=== PATIENT | male | born 1930 | race Caucasian/White ===

== ENCOUNTER 2017-10-26 15:42 | Inpatient (IN) ==
[2017-10-26] MEDS ORDERED: Ibuprofen 600 MG TABLET PO ONE (15:52)
--- NOTE | 2017-10-26 16:45 | Emergency Department Note ---
Disposition Clinical Impression: Fractured femoral neck Qualifiers: Encounter type: initial encounter Fracture type: closed Laterality: left Qualified Code(s): S72.002A - Fracture of unspecified part of neck of left femur , initial encounter for closed fracture Disposition: Admitted As Inpatient Condition: Fair Time of Disposition: 18:44 General Adult HPI - General Chief complaint: ED Extremity Injury, Lower Stated complaint: Fall-Left Hip Injury Time Seen by Provider: 10/26/17 15:47 Source: EMS Mode of arrival: EMS Limitations: no limitations Nursing Notes Reviewed: Yes Vital Signs Reviewed: Yes - History of Present Illness HPI Narrative: 87-year-old male presents to emergency department after a fall. Patient states he was walking to Dr. Dukes office when he tripped on a curb and fell onto his left side he states he did not his head did not lose consciousness is only complaining of left hip pain is going down into his leg he is complaining of the mild knee pain listed as all due to an abrasion from his fall. Says he remembers the entire event. He states is tripped over the curb there is no other reason for the fall is all mechanical. Patient is not complaining of any nausea, vomiting, headache, blurry vision, fever, chills, neck pain, back pain, chest pain, shortness of breath, abdominal pain, changes in bowel movements, pain with urination, pain or tenderness of the arms or legs and generalized weakness. He is also not complaining of any cauda equina symptoms as he still has control of his bowels and bladder. Pain Scale: 2 - Related Data Home Medications Medication Instructions Recorded Confirmed Aspirin [Aspirin] 81 mg PO DAILY 05/09/15 04/23/16 Naphazoline HCl/Pheniramine [Eye 1 drop OP QID 05/09/15 04/23/16 Allergy Relief Drops] Brimonidine Tartrate [Alphagan P] 1 drop OP TID 04/23/16 04/23/16 Ciprofloxacin OPTH Soln [Ciloxan 1 drop BOTH EYES TID 04/23/16 04/23/16 OPTH Soln] Mv-Mn/FA/Vit K1/Lycop/Lut/Zeax 1 tab PO DAILY 04/23/16 04/23/16 [Ocuvite Eye + Multi Tablet] Timolol Maleate 0.25% [Timolol 1 drop OP TID 04/23/16 04/23/16 Maleate 0.25%] Previous Rx's Medication Instructions Recorded Hydrocodone/Acetaminophen [[place] 1 each PO Q4-6H PRN #30 tablet 04/23/16 5-325 Tablet] Mupirocin [Bactroban Oint] 1 appl TP BID #1 tube 04/23/16 cephALEXin [Keflex] 500 mg PO TID 5 Days capsule 04/23/16 Mupirocin [Bactroban Oint] 1 appl TP BID #1 tube 08/19/16 Sulfamethoxazole/Trimeth DS 1 each PO BID #14 tablet 08/19/16 [Bactrim DS] Allergies Allergy/AdvReac Type Severity Reaction Status Date / Time No Known Allergies Allergy Verified 05/09/15 08:09 Review of Systems: 10 point review of systems done and negative unless otherwise stated in history of present illness. All systems ED: reviewed and negative except as stated. Review of Systems: As Per HPI Past Medical History - Past Medical History Attestation: Yes The following information was validated with the patient. Source: patient Medical history: Reports: glaucoma Psychiatric history: Reports: no psych history - Social History Smoking Status: Never smoker Smokeless Tobacco Status: No Alcohol use: Reports: none Drug use: Reports: none Physical Exam - General Limitations: no limitations General appearance: alert, in no apparent distress - Head Head exam: atraumatic, normocephalic, normal inspection - Eye Eye exam: Present: normal appearance, PERRL, EOMI - ENT ENT exam: normal exam, normal oropharynx, mucous membranes moist - Neck Neck exam: Present: normal inspection, full ROM, trachea midline - Chest Chest inspection: Present: normal inspection, symmetric chest wall rise - Respiratory Respiratory exam: Present: normal lung sounds bilaterally. Absent: respiratory distress, wheezes, accessory muscle use - Cardiovascular Cardiovascular exam: Present: regular rate, normal rhythm, normal heart sounds - Abdominal Exam Abdominal exam: Present: soft, Non-Tender. Absent: tenderness, distention, guarding, rebound, rigidity - Expanded Lower Extremity Exam Hip/Pelvis exam: Present: normal inspection, full ROM. Absent: tenderness Upper leg exam: Present: normal inspection, full ROM Knee exam: Present: normal inspection, full ROM, abrasion (Small abrasion on anterior surface of the knee.). Absent: tenderness Lower leg exam: Present: normal inspection, full ROM Neurovascular/Tendon exam: Present: normal capillary refill. Absent: pulse deficit, motor deficit, sensory deficit, tendon deficit - Back Exam Back exam: Present: normal inspection, full ROM. Absent: tenderness - Neurological Exam Neurological exam: Present: alert, oriented X3 - Skin Skin exam: Present: warm, dry, intact, normal color Course Course Narrative: 87-year-old male presents to the emergency department complaining of left-sided hip pain. We will give him Motrin for pain control will also get a left-sided hip x-ray to see if there is any signs of fracture. We will reassess patient based on x-ray findings. - Reevaluation(s) Reevaluation #1: X-ray came back showing left femoral neck fracture. We will get CBC, BMP place an IV give him fluids as well as coags. We will give patient IV fluids as well as Dilaudid for pain control and will contact orthopedic surgery. Time: 17:00 Vital Signs Temperature 97.5 F L 10/26/17 15:44 Pulse Rate 80 10/26/17 15:44 Respiratory Rate 18 10/26/17 15:44 Blood Pressure 165/94 10/26/17 15:44 O2 Sat by Pulse Oximetry 97 10/26/17 15:44 Temperature 97.5 F L 10/26/17 15:44 Pulse Rate 86 10/26/17 18:31 Respiratory Rate 14 10/26/17 18:31 Blood Pressure 160/74 10/26/17 18:31 O2 Sat by Pulse Oximetry 95 10/26/17 18:31 Oxygen Delivery Oxygen Delivery Nasal Cannula Medical Decision Making - [facility] Narrative Medical decision making narrative: 87-year-old male presented to the emergency department for a fall he fell onto his left hip is mechanical fall where he tripped over a curb. He was complaining of left hip pain. On exam he had mild external rotation with mild shortening of the left leg but he had no pelvic tenderness when I compress his pelvis or palpated the left leg. He did have good pedal pulses bilaterally. Did get x-ray which showed possible femoral neck fracture that is nondisplaced. This time we decided to give patient Dilaudid as well as IV fluids and got basic labs. These are me pending his surgery tomorrow all these came back normal. I spoke with the on-call orthopedist, Dr. Harden who agreed to see the patient but recommended we admit to the hospitalist service and consult them. This was done I then spoke with Dr. Albright the hospitalist agreed to admit the patient to their service. Patient is admitted in stable condition. They did ask me to order a CT of the hip which is done and is still pending. Patient is admitted in stable condition. Hip X-Ray 10/26/17 15:52 IMPRESSION: Findings suspicious for a nondisplaced fracture of the left femoral neck. Further evaluation with CT/ MRI should be considered as clinically indicated. D/ / Deep Hernandez MD / Deep Hernandez MD Interpreting Provider: Deep Hernandez MD - Medical Records Medical records reviewed: Yes I reviewed the patient's medical records. - Lab Data Lab results reviewed: Yes I reviewed the patient's lab results. Result diagrams: 10/26/17 17:39 10/26/17 17:39 Lab Results 10/26/17 10/26/17 10/26/17 Range/Units 17:39 17:39 17:39 WBC 8.3 (4.3-11.1) K/mcL RBC 4.42 (4.19-5.50) M/mcL Hgb 13.4 (12.9-16.9) g/dL Hct 41.5 (37.5-50.1) % MCV 93.9 (83.0-100.0) fL MCH 30.3 (28.0-33.3) pg MCHC 32.3 (31.6-35.5) g/dL RDW 13.2 (11.5-14.5) % Plt Count 225 (140-400) K/mcL MPV 9.7 (9.4-12.4) fL Immature Gran % 0.5 (0-4) % Seg Neutrophils % 74.0 % Lymphocytes % 15.2 % Monocytes % 6.7 % Eosinophils % 3.0 % Basophils % 0.6 % Neutrophils # 6.1 (1.6-8.9) K/mcL Lymphocytes # 1.3 (0.6-4.6) K/mcL Monocytes # 0.6 (0.0-1.3) K/mcL Eosinophils # 0.3 (0.0-0.6) K/mcL Basophils # 0.1 (0.0-0.2) K/mcL PT 10.9 (9.4-12.1) Seconds INR 1.0 APTT 28.2 (26.0-36.0) Seconds Sodium 137 (136-145) mEq/L Potassium 4.4 (3.5-5.1) mEq/L Chloride 105 (98-107) mEq/L Carbon Dioxide 24 (23-29) mEq/L BUN 20 (8-23) mg/dL Creatinine 0.89 (0.70-1.30) mg/dL Est GFR ( Amer) > 60 (> 60) Est GFR (Non-Af Amer) > 60 (> 60) BUN/Creatinine Ratio 22 (6-26) Glucose 106 H (70-105) mg/dL Calculated Osmolality 287 (280-300) Calcium 9.3 (8.6-10.3) mg/dL - Radiology Data Radiology results reviewed: Yes I reviewed the patient's radiology results. Attestation Statement - Attestation Attestation: I, Silverio Nguyen DO, examined this patient [id number] and my medical decision-making was reviewed with Dr. Balta Morrison, Resident Physician. I agree with the documented findings, disposition and treatment plan as described except to the extent set forth below. Please see my progress notes for details. 87-year-old male presents to emergency room in a mechanical fall. He is ambulating to a doctor's appointment today with his when he tripped over a curb falling sideways hitting his left hip on the ground. Patient significant pain after that event. He did not hit his head and did not lose consciousness. He has no other complaint of injuries. Entire shoulder girdle and bilateral upper extremities and hands. Ekaterina and there is no visible signs of trauma rash or injury. Patient is not up-to-date on his tetanus. He does have a small superficial abrasion to left knee. He has no gross abnormality deformity to the left knee at this time. He has a stable pelvis on palpation this point no abdominal pain. He has mild tenderness over the greater trochanter but no gross abnormality deformity. His left leg is externally rotated and slightly shortened. Patient is actually confirms a left femoral neck fracture. No other gross abnormalities noted. Screening laboratory workup and EKG added on for preoperative evaluation. Consultation orthopedics will be completed. Patient does not warrant CT of the head or neck considering he did not fall or hit his head. Vital signs are stable. Consultations this admission will be established this time secondary to inability to ambulate. See detailed documentation of the physical exam, medical intervention, medical decision- making and disposition in the resident physician's note [id number] 87-year-old male done at femoral neck fracture by CT scan. Admission passes completed. Pain is controlled at this time. No other complaints or issues.
[2017-10-26] MEDS ORDERED: Ondansetron 4 MG/2 ML VIAL IVP ONE (16:55)
[2017-10-26] MEDS ORDERED: *HR* HYDROmorphone (PF) 1 MG/ML SYRINGE IVP ONE (16:55)
[2017-10-26] MEDS ORDERED: 0.9 % Sodium Chloride 1,000 ML IVC ONE (16:55)
[2017-10-26] MEDS ORDERED: Tdap (Boostrix) Vaccine 0.5 ML SYRINGE IM ONE (17:26)
[2017-10-26 17:44] LABS: Basophils # 0.1 K/mcL (0.0-0.2); Basophils % 0.6 %; Eosinophils # 0.3 K/mcL (0.0-0.6); Hematocrit 41.5 % (37.5-50.1); Hemoglobin 13.4 g/dL (12.9-16.9); Immature Granulocytes % 0.5 % (0-4); Lymphocytes # 1.3 K/mcL (0.6-4.6); Lymphocytes % 15.2 %; Mean Corpuscular HGB Conc 32.3 g/dL (31.6-35.5); Mean Corpuscular Hemoglobin 30.3 pg (28.0-33.3); Mean Corpuscular Volume 93.9 fL (83.0-100.0); Mean Platelet Volume 9.7 fL (9.4-12.4); Monocytes # 0.6 K/mcL (0.0-1.3); Monocytes % 6.7 %; Neutrophils # 6.1 K/mcL (1.6-8.9); Platelet Count 225 K/mcL (140-400); Red Blood Count 4.42 M/mcL (4.19-5.50); Red Cell Distribution Width 13.2 % (11.5-14.5)
[2017-10-26 17:55] LABS: Prothrombin Time 10.9 Seconds (9.4-12.1)
[2017-10-26 17:58] LABS: Activated Partial Thrombo Time 28.2 Seconds (26.0-36.0)
[2017-10-26 17:59] LABS: BUN/Creatinine Ratio 22 (6-26); Blood Urea Nitrogen 20 mg/dL (8-23); Calcium 9.3 mg/dL (8.6-10.3); Carbon Dioxide 24 mEq/L (23-29); Chloride 105 mEq/L (98-107); Glucose 106 mg/dL (70-105); Osmolality,Calculated 287 (280-300); Potassium 4.4 mEq/L (3.5-5.1); Sodium 137 mEq/L (136-145); eGFR For African Americans > 60 (> 60); eGFR For Non-African Americans > 60 (> 60)
[2017-10-26] MEDS: Acetaminophen 325 MG TABLET PO PRN (23:31)
[2017-10-27] MEDS ORDERED: Ondansetron 4 MG/2 ML VIAL IVP PRN ×2 (01:20→23:13)
[2017-10-27] MEDS ORDERED: Naloxone 0.4 MG/ML INJ IVP PRN ×2 (01:20→23:13)
[2017-10-27] MEDS ORDERED: 0.9 % Sodium Chloride 1,000 ML IVC SCH ×2 (01:30→23:13)
--- NOTE | 2017-10-27 01:55 | Internal Med History&Physical ---
Date of Encounter: 10/27/17 Time of Encounter: 00:20 Assessment and Plan (1) Fractured femoral neck Current visit: Yes Status: Acute 1. Patient with adequate pain control presently. 2. Consult orthopedics for likely surgical repair. 3. Hydrate with IVF and provide IV pain meds and anti-emetics as needed. 4. Will check baseline EKG and CXR. Qualifiers: Encounter type: initial encounter Fracture type: closed Laterality: left Qualified Code(s): S72.002A - Fracture of unspecified part of neck of left femur, initial encounter for closed fracture (2) DVT prophylaxis Current visit: Yes Status: Acute 1. Heparin SQ. Internal Medicine - H&P: HPI Chief complaint: hip fracture Admitted From: Emergency Dept Plans for Post Hospital Care: Transfer Inp Rehab Fac History of present illness: Mr. Bender is an 87 year old male who presents to the ER after he slipped and fell outside walking to a doctor's office. He landed on his left side sustaining significant pain. He was brought to ER and was found to have a left hip fracture. He was admitted to hospitalist service with a consultation to orthopedics. Upon my assessment of the patient, patient is lying in bed comfortably with minimal pain now. He states he tripped on the sidewalk and landed on concrete, injuring himself and breaking his hip. He denies any syncope. He denies any lightheadedness, dizziness, palpitations, or racing heartbeats. Patient and his state he has no chronic medical problems and he exercises regularly. He has no history of angina or any anginal type symptoms. Past Med Surg Social Fam HX - Past Medical History Attestation: Yes The following information was validated with the patient. Source: patient, old records reviewed, obtained from family Medical history: no medical history, glaucoma Psychiatric history: no psych history - Past Surgical History Surgical History: other (tonsillectomy; thoracic surgery for esophageal perforation) - Social History Smoking Status: Former smoker Smokeless Tobacco Status: No Alcohol use: none Drug use: none Current living situation: Home Recent Out of Country Travel Within the Last 8 Weeks: No - Family History Mother Living Status: Age at : 40 Cause of : spinal cancer Hx Family Cancer: Yes (spinal cancer) Internal Medicine - H&P: Meds Mv-Mn/FA/Vit K1/Lycop/Lut/Zeax [Ocuvite Eye + Multi Tablet] 1 tab PO BID [History] Aspirin Enteric Coated [Aspirin EC] 81 mg PO DAILY 10/26/17 [History] Ciprofloxacin OPTH Soln [Ciloxan OPTH Soln] 1 drop OP QID 10/26/17 [History] Latanoprost [Xalatan] 1 drop OP HS 10/26/17 [History] Timolol Maleate 0.5% 1 drop OP BID 10/26/17 [History] 3 Allergy/AdvReac Type Severity Reaction Status Date / Time morphine AdvReac Hallucinati Verified 10/26/17 20:24 ng - Constitutional Constitutional: no chills, no fever(s) - EENT Eyes: loss of vision (chronic) Ears: no ear pain, no tinnitus Nose, mouth and throat: no nasal congestion, no sinus pressure, no sore throat - Cardiovascular Cardiovascular ROS IM: no chest pain, no dyspnea, no dyspnea on exertion, no irregular heart rhythm, no lightheadedness, no palpitations, no syncope - Respiratory Respiratory: no cough, no dyspnea, no dyspnea on exertion, no chest congestion, no excessive phlegm production - Gastrointestinal Gastrointestinal: no abdominal pain, no diarrhea, no hematemesis, no hematochezia, no melena, no nausea, no vomiting - Genitourinary Genitourinary ROS male: no dysuria, no flank pain, no hematuria - Musculoskeletal Musculoskeletal ROS IM: no back pain, no muscle weakness, no myalgias - Integumentary Integumentary IM: no rash, no jaundice - Neurological Neurological ROS: no dizziness, no focal weakness, no frequent falls, no headache(s), no weakness - Psychiatric Psychiatric: no anxiety, no depression - Endocrine Endocrine IM: no polydipsia, no polyuria - Hematologic/Lymphatic Hematologic/Lymphatic: no easy bruising, no lymphadenopathy - Allergic/Immunologic Allergic/Immunologic: no wheezing, no GI upset with certain foods - Constitutional Vitals: Temp Pulse Resp BP Pulse Ox 98.0 F 82 17 131/80 100 10/26/17 23:48 10/26/17 23:48 10/26/17 23:48 10/26/17 23:48 10/26/17 23:48 General appearance: Present: cooperative, A&O X 3, pleasant, no acute distress, answers questions appropriately - Head Head exam: Present: atraumatic, normal inspection - Eye Eye exam: Present: EOMI, PERRL. Absent: scleral icterus Pupils: Present: normal accommodation - ENT ENT exam: Present: mucous membranes dry, normal exam - Neck Neck exam general surgery: Present: full ROM, supple. Absent: tenderness, nuchal rigidity - Expanded Neck Exam Neck exam: Absent: carotid bruit - Respiratory Respiratory exam: Present: CTAB. Absent: chest wall tenderness, rales, rhonchi , wheezes - Cardiovascular Cardiovascular exam: Present: RRR, +S1, +S2. Absent: diastolic murmur, systolic murmur - GI/Abdominal GI/Abdominal exam: Present: normal bowel sounds, soft. Absent: guarding, hepatomegaly, mass, rebound, splenomegaly, tenderness - Extremities Exam Extremities exam: Present: tenderness (left hip), warm, radial pulses palpable and symmetrical. Absent: calf tenderness, pedal edema - Back Exam Back exam: Absent: CVA tenderness (L), CVA tenderness (R) - Neurological Exam Neurological exam: Present: alert, CN II-XII intact, oriented X3, no focal deficits - Psychiatric Psychiatric exam: Present: normal affect, normal mood - Skin Skin exam: Present: dry, warm. Absent: rash Internal Med - H&P Results - Labs CBC & Chem 7: 10/26/17 17:39 10/26/17 17:39
[2017-10-27] MEDS: Acetaminophen 325 MG TABLET PO PRN (04:17)
[2017-10-27] MEDS: *HR* Heparin 5,000 UNIT/ML VIAL SQ SCH ×2 (04:17→15:30)
[2017-10-27 07:49] LABS: Alanine Aminotransferase 15 Units/L (7-52); Albumin 3.8 g/dL (3.5-5.7); Albumin/Globulin Ratio 1.5 (1.1-2.2); Alkaline Phosphatase 24 Units/L (34-104); Aspartate Amino Transferase 17 Units/L (13-39); BUN/Creatinine Ratio 26 (6-26); Bilirubin,Total 0.6 mg/dL (0.3-1.0); Blood Urea Nitrogen 19 mg/dL (8-23); Calcium 8.6 mg/dL (8.6-10.3); Carbon Dioxide 23 mEq/L (23-29); Chloride 107 mEq/L (98-107); Globulin 2.6 g/dL (2.4-3.5); Glucose 128 mg/dL (70-105); Osmolality,Calculated 288 (280-300); Potassium 4.1 mEq/L (3.5-5.1); Sodium 137 mEq/L (136-145); Total Protein 6.4 g/dL (6.4-8.9); eGFR For African Americans > 60 (> 60); eGFR For Non-African Americans > 60 (> 60)
[2017-10-27 08:06] LABS: Basophils % 0.3 %; Eosinophils # 0.1 K/mcL (0.0-0.6); Eosinophils % 0.7 %; Hematocrit 39.5 % (37.5-50.1); Hemoglobin 12.6 g/dL (12.9-16.9); Immature Granulocytes % 0.5 % (0-4); Lymphocytes # 0.9 K/mcL (0.6-4.6); Lymphocytes % 10.6 %; Mean Corpuscular HGB Conc 31.9 g/dL (31.6-35.5); Mean Corpuscular Hemoglobin 29.7 pg (28.0-33.3); Mean Corpuscular Volume 93.2 fL (83.0-100.0); Monocytes # 0.9 K/mcL (0.0-1.3); Monocytes % 10.4 %; Neutrophils # 6.8 K/mcL (1.6-8.9); Platelet Count 211 K/mcL (140-400); Red Blood Count 4.24 M/mcL (4.19-5.50); Red Cell Distribution Width 13.2 % (11.5-14.5); Segmented Neutrophils % 77.5 %
[2017-10-27] MEDS: *HR* HYDROcodone/Acet 5/325 mg TABLET PO PRN ×2 (08:47→15:21)
[2017-10-27] MEDS: Ciprofloxacin OPTH Soln 2.5 ML BOTTLE BOTH EYES SCH ×4 (08:47→22:31)
[2017-10-27] MEDS ORDERED: Multivit/Ca/Min/Fe/FA 1 TAB TABLET PO SCH (09:00)
[2017-10-27] MEDS ORDERED: Aspirin Enteric Coated 81 MG Tablet PO SCH (09:00)
--- NOTE | 2017-10-27 10:46 | Orthopedic Consult Note ---
Date of Encounter: 10/27/17 Time of Encounter: 07:30 Assessment and Plan (1) Fractured femoral neck Current Visit: Yes Status: Acute Left hip femoral neck fracture will require surgical fixation. Plan for left hip hemiarthroplasty today by Dr. Cheney. Discussed the procedure as well as r/b/ a with patient and who expressed understanding. Consent obtained and placed in chart. All questions answered. NPO today NWB until surgery. Qualifiers: Encounter type: initial encounter Fracture type: closed Laterality: left Qualified Code(s): S72.002A - Fracture of unspecified part of neck of left femur, initial encounter for closed fracture History of Present Illness Chief complaint: left hip pain HPI: Mr. Bender is a 87 year old male who presented to ER last night after a fall. He states he has poor vision due to glaucoma and macular degeneration and he tripped on a raised area on the sidewalk landing on his left side and had instant constant pain since that fall that is worse with motion or weight bearing. Pain at current moment is very well controlled and described as dull ache at rest. States he normally walks with a cane for long distances but uses no assistance at home. He admits to having a scrape to his left knee but denies any other lesions. Denies numbness or tingling to extremities. Denies chest pain , SOB, fevers. Denies hitting his head or LOC. Past Med Surg Social Fam HX - Past Medical History Medical history: no medical history, glaucoma, other (macular degeneration) Psychiatric history: no psych history - Past Surgical History Surgical History: other (tonsillectomy; thoracic surgery for esophageal perforation) - Social History Smoking Status: Former smoker Smokeless Tobacco Status: No Alcohol use: none Drug use: none - Family History Mother Living Status: Age at : 40 Cause of : spinal cancer Hx Family Cancer: Yes (spinal cancer) Medications and Allergies Mv-Mn/FA/Vit K1/Lycop/Lut/Zeax [Ocuvite Eye + Multi Tablet] 1 tab PO BID [History] Aspirin Enteric Coated [Aspirin EC] 81 mg PO DAILY 10/26/17 [History] Ciprofloxacin OPTH Soln [Ciloxan OPTH Soln] 1 drop OP QID 10/26/17 [History] Latanoprost [Xalatan] 1 drop OP HS 10/26/17 [History] Timolol Maleate 0.5% 1 drop OP BID 10/26/17 [History] 3 Allergy/AdvReac Type Severity Reaction Status Date / Time morphine AdvReac Hallucinati Verified 10/26/17 20:24 ng All Systems Reviewed: A 10-system review of systems was performed and is negative for pertinent findings except as documented above in the HPI. - Constitutional Constitutional: as per HPI - Cardiovascular Cardiovascular: as per HPI - Respiratory Respiratory: as per HPI - Musculoskeletal Musculoskeletal: as per HPI Physical Exam - Constitutional Vitals: Temp Pulse Resp BP Pulse Ox 98.3 F 88 16 145/80 95 10/27/17 06:37 10/27/17 06:37 10/27/17 06:37 10/27/17 06:37 10/27/17 06:37 - Hip left Tenderness with palpation: anterior, lateral (No open wounds or lesions noted to left hip, superficial skin abrasion noted to lateral left knee roughly 3cm diameter. Moderate tenderness to palpation of left hip, no calf tenderness to palpation. ROM hip restricted secondary to known fracture. good dorsiflexion of foot, grossly NV intact) Results - Labs Result Diagrams: 10/27/17 07:16 10/27/17 07:16 Labs: Abnormal lab results Hgb 12.6 g/dL (12.9-16.9) L 10/27/17 07:16 Glucose 128 mg/dL (70-105) H 10/27/17 07:16 Alkaline Phosphatase 24 Units/L (34-104) L 10/27/17 07:16 H & H 10/27/17 Range/Units 07:16 Hgb 12.6 L (12.9-16.9) g/dL Hct 39.5 (37.5-50.1) % All other labs normal. - Diagnostic results Hip x-ray: report reviewed, image reviewed Hip CT: report reviewed (Acute mildly displaced left femoral neck fracture.), image reviewed Consult Discharge Plan - Plan Referrals: Jake Frederick DO [Primary Care Provider] - - Attending Attestation Case and plan of care discussed with supervising physician who was available for all aspects of care.
--- NOTE | 2017-10-27 16:21 | Anesthesia Evaluation PreOp ---
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, no residual deficits), Other (LEFT EYE BLINDNESS , RIGHT EYE LEGALLY BLIND) Other Medical History: GERD, Other (glaucoma) Anesthesia History: No Prior Anesthetic Complications, Past Anesthesia Alcohol Use: none Drug use: none Medications and Allergies Mv-Mn/FA/Vit K1/Lycop/Lut/Zeax [Ocuvite Eye + Multi Tablet] 1 tab PO BID [History] Aspirin Enteric Coated [Aspirin EC] 81 mg PO DAILY 10/26/17 [History] Ciprofloxacin OPTH Soln [Ciloxan OPTH Soln] 1 drop OP QID 10/26/17 [History] Latanoprost [Xalatan] 1 drop OP HS 10/26/17 [History] Timolol Maleate 0.5% 1 drop OP BID 10/26/17 [History] 3 Allergy/AdvReac Type Severity Reaction Status Date / Time morphine AdvReac Hallucinati Verified 10/26/17 20:24 ng - Meds/Allergy Pre-op Review Medications Reviewed: Yes Allergies Reviewed: Yes Beta Blockers on Current Med List: No Anesthesia Results - Labs 10/27/17 07:16 10/27/17 07:16 Laboratory Tests 10/26/17 17:39 PT 10.9 INR 1.0 APTT 28.2 - Imaging EKG: report reviewed (10/27/2017 SINUS RHYTHM MARKED LAD IV CONDUCTION DELAY SINUS RHYTHM WITH OCCASIONAL SUPRAVENTRICULAR PREMATURE COMPLEXES LEFT ANTERIOR FASCICULAR BLOCK) Anesthesia Exam Vital Signs/O2 Sat, Most Current Temp Pulse Resp BP Pulse Ox 99.5 F 92 16 152/83 92 10/27/17 16:13 10/27/17 16:13 10/27/17 16:13 10/27/17 16:13 10/27/17 16:13 Height: 6'/1.83 m Weight: 160 lbs/73 kg NPO (# of Hours): 8 Pain Scale: 0 Pain Scale Used: Numeric (1 - 10) - HEENT Pupil (Motor): EOMI Mallampati: II Teeth: Normal, Missing Denture Type: Upper: Complete Oral Opening: Greater than 3 - 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
--- NOTE | 2017-10-27 17:18 | Internal Med Progress Note ---
Date of Encounter: 10/27/17 Time of Encounter: 17:18 - Subjective Interval history: Interval changes: A&O x3 In NAD Pain controlled. No cp or SOB Physical Exam: See below Assesment and plan: Left hip femoral neck fracture, displaced S/p Left hip hemiarthroplasty Pain control with Tylenol and [place] PT/OT Await recommendations from PT/OT - Constitutional Vitals: Temp Pulse Resp BP Pulse Ox 99.5 F 92 16 152/83 92 10/27/17 16:13 10/27/17 16:13 10/27/17 16:13 10/27/17 16:13 10/27/17 16:13 General appearance: Present: cooperative, A&O X 3, pleasant, no acute distress, answers questions appropriately - Head Head exam: Present: atraumatic, normocephalic - Eye Eye exam: Present: PERRL, conjuntiva pink, sclera anicteric Pupils: Present: PERRL - Neck Neck exam general surgery: Present: supple, trachea midline. Absent: lymphadenopathy - Respiratory Respiratory exam: Present: CTAB. Absent: accessory muscle use, rales, rhonchi, wheezes - Cardiovascular Cardiovascular exam: Present: RRR, +S1, +S2. Absent: diastolic murmur, gallop, rubs, systolic murmur - GI/Abdominal GI/Abdominal exam: Present: normal bowel sounds, soft, no peritoneal signs. Absent: distended, tenderness - Neurological Exam Neurological exam: Present: oriented X3, no focal deficits, pronater drift, facial droop, speech deficit - Skin Skin exam: Present: dry, intact Internal Medicine: Result - Labs CBC & Chem 7: 10/27/17 07:16 10/27/17 07:16 Labs: Short CBC 10/27/17 Range/Units 07:16 WBC 8.8 (4.3-11.1) K/mcL Hgb 12.6 L (12.9-16.9) g/dL Hct 39.5 (37.5-50.1) % Plt Count 211 (140-400) K/mcL Neutrophils # 6.8 (1.6-8.9) K/mcL BMP 10/27/17 07:16 Sodium 137 Potassium 4.1 Chloride 107 Carbon Dioxide 23 BUN 19 Creatinine 0.74 Glucose 128 H Calcium 8.6 Liver Function 10/27/17 Range/Units 07:16 Total Bilirubin 0.6 (0.3-1.0) mg/dL AST 17 (13-39) Units/L ALT 15 (7-52) Units/L Alkaline Phosphatase 24 L (34-104) Units/L Albumin 3.8 (3.5-5.7) g/dL - ABG Interpretation ABG results: PT/INR, D-dimer PT 10.9 Seconds (9.4-12.1) 10/26/17 17:39 Consult Discharge Plan - Plan Referrals: Jake Frederick DO [Primary Care Provider] -
[2017-10-27] MEDS ORDERED: *HR* FentaNYL (PF) 100 MCG/2 ML VIAL ONE ×2 (18:24→19:10)
[2017-10-27] MEDS ORDERED: *HR* Propofol 200 MG/20 ML VIAL IVP ONE (18:24)
[2017-10-27] MEDS ORDERED: Lidocaine -MPF 2% 2 ML VIAL ONE (18:25)
[2017-10-27] MEDS ORDERED: *HR* Rocuronium Bromide 50 MG/5 ML VIAL ONE (18:33)
[2017-10-27] MEDS ORDERED: Lidocaine -MPF 4% 5 ML AMPUL ONE (18:43)
[2017-10-27] MEDS ORDERED: *HR* PHENYLEPHRINE 1,000 MCG/10 ML SYRINGE IVP ONE (19:05)
[2017-10-27] MEDS ORDERED: Ethanol\\Acetic Acid\\Na Ace\\Ben 1,000 ML IRRIG.SOLN IR ONE (19:13)
[2017-10-27] MEDS ORDERED: *HR* HYDROmorphone 2 MG/ML SYRINGE ONE (20:09)
[2017-10-27] MEDS ORDERED: Dexamethasone 4 MG/ML VIAL ONE (20:41)
[2017-10-27] MEDS ORDERED: Ondansetron 4 MG/2 ML VIAL ONE (20:41)
--- NOTE | 2017-10-27 20:58 | Operative Note ---
Date of procedure: 10/27/17 Pre-op diagnosis: Left hip femoral neck fracture, displaced Post-op diagnosis: same Procedure: Left hip hemiarthroplasty Implants: Biomet echo fracture stem, lateralized Anesthesia: GETA Surgeon: Gama Cheney Was there an ssn/ssbn assistant navigator present: No Estimated blood loss (cc): 250 Specimen: Sent to pathology Condition: stable Disposition: PACU Procedure in Detail: The patient received IV antibiotics in the holding area. He was brought to the operating room, sign in was performed. The patient underwent general anesthesia on the hospital bed. She was then transferred to the OR table in supine position. The patient was positioned in the right lateral decubitus position, supported by pelvic supports. Bony prominences of the right lower extremity were well padded. The left lower extremity was then prepped and draped in usual sterile fashion. A timeout was performed. The level of the greater trochanter was palpated, a 10-12 cm curvilinear posterior incision was made, followed by Bovie dissection. The hip abductor was sharply split in line with its fibers with a curved Owen scissors, incising the fascia over the gluteus long also. The Charnley retractors were then positioned, making sure all not to go too deeply, to protect the sciatic nerve. The bursa over the greater trochanter was excised with Bovie electrocautery. The left hip was then internally rotated, putting the short external rotators on stretch. These were taken down from the insertion point with the Bovie cautery, starting from less of a trochanter and going approximately to the femoral neck. The capsule along the posterior femoral neck and head was then T' ed, giving exposure to the fractured femoral head/neck. The head was then removed with a power corkscrew, and cutting the ligamentum teres. The head was measured and a size 49 mm diameter was chosen. The acetabulum was washed out of any bone fragments, and a trial head was placed giving a good fit. Next, the exposed fractured femoral neck was cleaned up with a rongeur, a safety deposit boxes custodian was then used to remove the lateral bone. The canal finder was then inserted. We then started broaching with a press-fit broaches from the [employer] Biomet echo tray. Starting with a press-fit 7, and moving up to a press-fit 8, keeping the appropriate anteversion. The trial stem was well fixed with no toggling. The broach was then removed. The canal was irrigated out and suctioned. The [employer] Echo press-fit stem was then opened, using a lateralized 130 degree neck angle and a size 12 pressfit stem, the implant was tapped in place, making sure to keep the correct anteversion. While attempting to disengage the position, the stem suddenly loosened. The implant was removed. The check the partial femur making sure that no fractures. I then re-broached starting with 11, and 12, then 13. The patient's bone felt very soft. It was decided to go with this cemented stem. An 11 mm Echo Fracture stem, lateralized was chosen. The canal was brushed and irrigated. A cement restrictor was placed. Cement, vancomycin, was mixed on the back table in standard technique. The cement was then pressure injected into the canal. The 11 mm stem was then positioned, making sure to maintain the appropriate anteversion. Stem was held in place until the cement was cured. Excess cement was then removed. Once well positioned, we trialed with a 49 mm diameter trial head, and a neutral neck length. It was very difficult to reduce the hip. Then trialed with a -3 mm neck length. The hip was then reduced. Stability was checked along with leg length, it was felt that the leg length was were equal, the patient had good extension of the left lower extremity, is able to flex the hip , adduct, and internally rotated up to 60 degrees before the hip started subluxing out. The trial components removed. The acetabulum was copiously irrigated with normal saline once again making sure it was well cleaned out. Next the 49 mm unipolar head was opened with a -3 mm neck length. This assembled and tapped in place. The hip was reduced, and stability was checked once again. We had good stability. The capsule was then closed with # 2 FiberWire figure of 8 sutures. The leg was placed on Woen stand, and the short external rotators were reattached to the bone using the FiberWire. The tensor fascia along with the gluteus fascia was closed with FiberWire [id number] sutures and a #1 Vicryl running suture proximally. Once again irrigating the wound with pulse lavage. The deep fat layer was closed with 0 Vicryl, subcutaneous tissues with 2-0 Vicryl simple sutures, and finally the skin was closed with rajeev. Sterile dressings were applied. A hip abduction wedge was in place between the patient' s legs. He was then rolled over into supine position and transferred back onto the hospital bed where he was extubated and taken to the recovery room in stable condition.
[2017-10-27] MEDS ORDERED: Latanoprost 2.5 ML BOTTLE BOTH EYES SCH (21:00)
--- NOTE | 2017-10-27 21:49 | Anesthesia Evaluation Post Op ---
Date of Encounter: 10/27/17 Time of Encounter: 22:00 - Vital Signs Vital Signs: Vital Signs/O2 Sat/Glucose, Most Current Temp Pulse Resp BP Pulse Ox 10/27/17 21:38 82 18 137/73 92 10/27/17 21:28 98.4 F 86 18 136/78 91 10/27/17 21:18 95 18 140/70 99 10/27/17 21:08 81 12 121/63 99 10/27/17 20:58 99.3 F 77 10 108/54 99 - Lungs Lungs: Clear Ascult./Percussion - Airway Airway: Non-obstructed - Cardiovascular Regular Rate - Mental Status Mental Status: Alert & Oriented, Answers Appropriately (asleep but very arousable) - Pain Pain Scale: 0 - Nausea Vomiting Nausea Vomiting: Not Present - Hydration Hydration: NPO - Discharge PostOp Status: Transfer Patient to floor
[2017-10-27] MEDS ORDERED: Temazepam 15 MG CAPSULE PO PRN (23:13)
[2017-10-27] MEDS ORDERED: MOM Conc 10 ML UD.LIQ PO PRN (23:13)
[2017-10-27] MEDS ORDERED: Acetaminophen 325 MG TABLET PO PRN (23:13)
[2017-10-27] MEDS ORDERED: Sennosides 8.6 MG TABLET PO PRN (23:13)
[2017-10-28] MEDS: CeFAZolin Premix DUPLEX 2,000 MG/50 ML BAG IVPB SCH ×2 (00:12→08:47)
[2017-10-28 07:08] LABS: Hematocrit 36.4 % (37.5-50.1); Hemoglobin 11.7 g/dL (12.9-16.9)
[2017-10-28 07:28] LABS: BUN/Creatinine Ratio 21 (6-26); Blood Urea Nitrogen 18 mg/dL (8-23); Calcium 8.5 mg/dL (8.6-10.3); Carbon Dioxide 25 mEq/L (23-29); Chloride 106 mEq/L (98-107); Glucose 131 mg/dL (70-105); Osmolality,Calculated 288 (280-300); Potassium 4.1 mEq/L (3.5-5.1); Sodium 137 mEq/L (136-145); eGFR For African Americans > 60 (> 60); eGFR For Non-African Americans > 60 (> 60)
--- NOTE | 2017-10-28 08:23 | Electrocardiograph Report ---
[place] [id number] Test Date: 2017-10-27 Pat Name: John Paul Bender Department: 114 Room: [facility] Gender: M Engineer Process: : 1930 Requested By: Zelalem Carmen Order Number: [id number] Reading MD: Ryan Sarkar MD Measurements Intervals [place] Rate: 92 P: 64 WV: 186 QRS: -63 QRSD: 132 T: 58 QT: 392 QTc: 442 Interpretive Statements SINUS RHYTHM MARKED LEFT AXIS DEVIATION BASELINE ARTIFACT Electronically Signed On 10-28-2017 8:21:11 EST by Ryna Sarkar MD
[2017-10-28] MEDS: Ascorbic Acid 500 MG TABLET PO SCH ×2 (08:48→20:48)
[2017-10-28] MEDS: Multivit/Ca/Min/Fe/FA 1 TAB TABLET PO SCH (08:48)
[2017-10-28] MEDS: Aspirin Enteric Coated 81 MG Tablet PO SCH (08:50)
[2017-10-28] MEDS ORDERED: Multivit/Ca/Min/Fe/FA 1 TAB TABLET PO SCH (09:00)
[2017-10-28] MEDS: Ringers Solution, Lactated 1,000 ML IVC SCH ×2 (12:36→12:37)
[2017-10-28] MEDS: *HR* HYDROcodone/Acet 5/325 mg TABLET PO PRN (12:52)
[2017-10-28] MEDS: Ciprofloxacin OPTH Soln 2.5 ML BOTTLE BOTH EYES SCH ×4 (12:53→20:49)
--- NOTE | 2017-10-28 15:52 | Orthopedics Progress Note ---
Date of Encounter: 10/28/17 Time of Encounter: 12:40 - Assessment and Plan (1) Fractured femoral neck Current Visit: Yes Status: Acute POD#1 s/p left hip hemiarthroplasty Continue PT/OT, WBAT. Ice to hip as needed dressings to be changed tomorrow. DVT prophylaxis and pain control per hospitalist Follow up with Chelsy Aviles PA-C in [facility] office at [facility]2. Qualifiers: Encounter type: initial encounter Fracture type: closed Laterality: left Qualified Code(s): S72.002A - Fracture of unspecified part of neck of left femur, initial encounter for closed fracture Subjective Principal diagnosis: POD#1 s/p Left hip hemiarthroplasty Interval history: Patient doing well today with no complaints. No events overnight. Pain well controlled. No calf tenderness. Participating in therapy. Objective Vital signs: Vital Signs Temp Pulse Resp BP Pulse Ox 10/28/17 10:57 98.1 F 98 16 109/61 94 10/28/17 06:19 97.8 F 88 18 125/80 97 10/28/17 04:29 98.0 F 89 14 122/80 97 10/28/17 01:45 86 14 119/79 96 10/28/17 00:45 82 14 122/73 96 10/27/17 23:45 98.2 F 85 14 115/75 95 10/27/17 23:20 98.6 F 85 14 126/79 95 10/27/17 22:48 97.8 F 79 14 123/78 94 10/27/17 22:32 94 10/27/17 22:26 98.0 F 79 14 121/76 93 10/27/17 22:11 97.9 F 81 14 129/83 92 10/27/17 21:58 97.8 F 81 18 133/71 92 10/27/17 21:48 81 18 134/67 92 10/27/17 21:38 82 18 137/73 92 10/27/17 21:28 98.4 F 86 18 136/78 91 10/27/17 21:18 95 18 140/70 99 10/27/17 21:08 81 12 121/63 99 10/27/17 20:58 99.3 F 77 10 108/54 99 10/27/17 16:13 99.5 F 92 16 152/83 92 Intake and Output 10/27/17 10/28/17 10/28/17 23:59 07:59 15:59 Intake Total 50 / 50 1000 / 1000 Output Total 350 / 350 400 / 400 Balance -350 / -350 50 / 50 600 / 600 Intake: IV Fluids 50 / 50 1000 / 1000 Ancef Premix DUPLEX 2,000 mg In 50 / 50 50 ml @ 100 mls/hr IVPB Q8HR [facility] Rx#:[id number] Output: Urine 100 / 100 400 / 400 Estimated Blood Loss 250 / 250 Incision: clean and dry (no visible drainage to dressings and no surrounding erythema, no calf tenderness to palpation) - Labs CBC & BMP: 10/28/17 06:32 10/28/17 06:32 Labs: Abnormal lab results Hgb 11.7 g/dL (12.9-16.9) L 10/28/17 06:32 Hct 36.4 % (37.5-50.1) L 10/28/17 06:32 Glucose 131 mg/dL (70-105) H 10/28/17 06:32 Calcium 8.5 mg/dL (8.6-10.3) L 10/28/17 06:32 Alkaline Phosphatase 24 Units/L (34-104) L 10/27/17 07:16 - VTE Documentation of Mechanical Device: Intermittent pneumatic compression device Consult Discharge Plan - Plan Referrals: Jake Frederick DO [Primary Care Provider] -
--- NOTE | 2017-10-28 17:53 | Internal Med Progress Note ---
Date of Encounter: 10/28/17 Time of Encounter: 17:53 - Subjective Interval history: Interval changes: A&O x3 In NAD Pain controlled. No cp or SOB Physical Exam: See below Assesment and plan: Left hip femoral neck fracture, displaced S/p Left hip hemiarthroplasty Pain control with Tylenol and [place] PT/OT Await recommendations from PT/OT General appearance: Present: cooperative, A&O X 3, pleasant, no acute distress, answers questions appropriately - Head Head exam: Present: atraumatic, normocephalic - Eye Eye exam: Present: PERRL, conjuntiva pink, sclera anicteric Pupils: Present: PERRL - Neck Neck exam general surgery: Present: supple, trachea midline. Absent: lymphadenopathy - Respiratory Respiratory exam: Present: CTAB. Absent: accessory muscle use, rales, rhonchi, wheezes - Cardiovascular Cardiovascular exam: Present: RRR, +S1, +S2. Absent: diastolic murmur, gallop, rubs, systolic murmur - GI/Abdominal GI/Abdominal exam: Present: normal bowel sounds, soft, no peritoneal signs. Absent: distended, tenderness - Neurological Exam Neurological exam: Present: oriented X3, no focal deficits, pronater drift, facial droop, speech deficit - Skin Skin exam: Present: dry, intact - Constitutional Vitals: Temp Pulse Resp BP Pulse Ox 97.8 F 99 18 94/55 94 10/28/17 15:52 10/28/17 15:52 10/28/17 15:52 10/28/17 15:52 10/28/17 15:52 General appearance: Present: cooperative, A&O X 3, pleasant, no acute distress, answers questions appropriately Internal Medicine: Result - Labs CBC & Chem 7: 10/28/17 06:32 10/28/17 06:32 Labs: Short CBC 10/28/17 Range/Units 06:32 Hgb 11.7 L (12.9-16.9) g/dL Hct 36.4 L (37.5-50.1) % BMP 10/28/17 06:32 Sodium 137 Potassium 4.1 Chloride 106 Carbon Dioxide 25 BUN 18 Creatinine 0.84 Glucose 131 H Calcium 8.5 L - ABG Interpretation ABG results: PT/INR, D-dimer PT 10.9 Seconds (9.4-12.1) 10/26/17 17:39 - Impressions Impressions Hip X-Ray 10/27/17 21:27 IMPRESSION: Postsurgical changes left hip arthroplasty. D/ / Lamar Ochoa MD / Lamar Ochoa MD Interpreting Provider: Lamar Ochoa MD - VTE Documentation of Mechanical Device: Intermittent pneumatic compression device Consult Discharge Plan - Plan Referrals: Jake Frederick DO [Primary Care Provider] -
[2017-10-28] MEDS: *HR* Enoxaparin 30 MG/0.3 ML SYRINGE SQ SCH (20:49)
[2017-10-28] MEDS: Latanoprost 2.5 ML BOTTLE BOTH EYES SCH (20:49)
[2017-10-29] MEDS: *HR* HYDROcodone/Acet 5/325 mg TABLET PO PRN ×2 (00:16→18:08)
[2017-10-29] MEDS: *HR* Enoxaparin 30 MG/0.3 ML SYRINGE SQ SCH ×2 (05:59→17:47)
[2017-10-29] MEDS: *HR* OxyCODONE Immed Rel 5 MG TABLET PO PRN ×2 (05:59→23:15)
[2017-10-29 06:28] LABS: BUN/Creatinine Ratio 33 (6-26); Blood Urea Nitrogen 22 mg/dL (8-23); Carbon Dioxide 25 mEq/L (23-29); Chloride 105 mEq/L (98-107); Glucose 119 mg/dL (70-105); Osmolality,Calculated 284 (280-300); Potassium 4.2 mEq/L (3.5-5.1); Sodium 135 mEq/L (136-145); eGFR For African Americans > 60 (> 60); eGFR For Non-African Americans > 60 (> 60)
[2017-10-29 06:37] LABS: Hematocrit 30.8 % (37.5-50.1)
[2017-10-29 07:29] LABS: Hemoglobin 9.9 g/dL (12.9-16.9)
[2017-10-29] MEDS: Aspirin Enteric Coated 81 MG Tablet PO SCH ×2 (08:45→08:46)
[2017-10-29] MEDS: Ascorbic Acid 500 MG TABLET PO SCH ×2 (08:45→17:47)
[2017-10-29] MEDS: Multivit/Ca/Min/Fe/FA 1 TAB TABLET PO SCH (08:46)
[2017-10-29] MEDS: Ciprofloxacin OPTH Soln 2.5 ML BOTTLE BOTH EYES SCH ×4 (08:48→20:28)
--- NOTE | 2017-10-29 13:56 | Internal Med Progress Note ---
Date of Encounter: 10/29/17 Time of Encounter: 13:54 - Subjective Interval history: Interval changes: 10/28/2017: A&O x3 In NAD Pain controlled. No cp or SOB Noted left foot drop 10/29/2017: A&O x3 In NAD Pain controlled. No cp or SOB Left foot drop minimally better Physical Exam: See below Assesment and plan: Left hip femoral neck fracture, displaced S/p Left hip hemiarthroplasty Pain control with Tylenol and [place] PT/OT D/C to hab Thursday F/U with tho followin rehab General appearance: Present: cooperative, A&O X 3, pleasant, no acute distress, answers questions appropriately - Head Head exam: Present: atraumatic, normocephalic - Eye Eye exam: Present: PERRL, conjuntiva pink, sclera anicteric Pupils: Present: PERRL - Neck Neck exam general surgery: Present: supple, trachea midline. Absent: lymphadenopathy - Respiratory Respiratory exam: Present: CTAB. Absent: accessory muscle use, rales, rhonchi, wheezes - Cardiovascular Cardiovascular exam: Present: RRR, +S1, +S2. Absent: diastolic murmur, gallop, rubs, systolic murmur - GI/Abdominal GI/Abdominal exam: Present: normal bowel sounds, soft, no peritoneal signs. Absent: distended, tenderness - Neurological Exam Neurological exam: Present: oriented X3, no focal deficits, pronater drift, facial droop, speech deficit Left foot drop noted - Skin Skin exam: Present: dry, intact - Constitutional Vitals: Temp Pulse Resp BP Pulse Ox 98.3 F 80 16 135/83 94 10/29/17 11:37 10/29/17 11:37 10/29/17 11:37 10/29/17 11:37 10/29/17 11:37 General appearance: Present: cooperative, A&O X 3, pleasant, no acute distress, answers questions appropriately Internal Medicine: Result - Labs CBC & Chem 7: 10/29/17 05:36 10/29/17 05:36 Labs: Short CBC 10/29/17 Range/Units 05:36 Hgb 9.9 L D (12.9-16.9) g/dL Hct 30.8 L (37.5-50.1) % BMP 10/29/17 05:36 Sodium 135 L Potassium 4.2 Chloride 105 Carbon Dioxide 25 BUN 22 Creatinine 0.67 L Glucose 119 H Calcium 8.0 L - ABG Interpretation ABG results: PT/INR, D-dimer PT 10.9 Seconds (9.4-12.1) 10/26/17 17:39 - VTE Documentation of Mechanical Device: Venous foot pump, device Consult Discharge Plan - Plan Referrals: Chelsy Aviles, PAC [[facility]] - 11/11/17 9:00 am () Sonu Herron, NICOLE [Partnered Physician] - 12/17/17 10:00 am Jake Frederick DO [Primary Care Provider] -
--- NOTE | 2017-10-29 15:23 | Orthopedics Progress Note ---
Date of Encounter: 10/29/17 Time of Encounter: 08:15 - Assessment and Plan (1) Fractured femoral neck Current Visit: Yes Status: Acute POD#2 s/p left hip hemiarthroplasty Continue PT/OT, WBAT. Ice to hip as needed dressings to be changed before discharge. apply deal boot while in bed to prevent heel pressure sores, no pressure wounds noted at this time but patient has tenderness to left heel DVT prophylaxis and pain control per hospitalist Plan for discharge tomorrow to [facility] for rehab Follow up with Chelsy Aviles PA-C in [facility] office at [facility]#2. Qualifiers: Encounter type: initial encounter Fracture type: closed Laterality: left Qualified Code(s): S72.002A - Fracture of unspecified part of neck of left femur, initial encounter for closed fracture Subjective Principal diagnosis: POD#2 s/p Left hip hemiarthroplasty Interval history: Patient doing well today. Only complaint right now is his left heel hurts. No events overnight. Pain well controlled. No calf tenderness. Participating in therapy. Objective Vital signs: Vital Signs Temp Pulse Resp BP Pulse Ox 10/29/17 11:37 98.3 F 80 16 135/83 94 10/29/17 06:46 98.0 F 89 17 118/61 99 10/28/17 23:29 98.1 F 98 14 121/50 95 10/28/17 19:42 98.2 F 104 14 123/55 95 10/28/17 15:52 97.8 F 99 18 94/55 94 Intake and Output 10/28/17 10/29/17 10/29/17 23:59 07:59 15:59 Intake Total 400 / 400 Balance 400 / 400 Intake: Oral 400 / 400 Other: Meal Dinner Percent of Meal Consumed 40% Incision: clean and dry (dressings c/d/i with no visible drainage or surrounding erythema, no calf tenderness to palpation. tenderness to left heel but no erythema or pressure wounds noted) - Labs CBC & BMP: 10/29/17 05:36 10/29/17 05:36 Labs: Abnormal lab results Hgb 9.9 g/dL (12.9-16.9) L D 10/29/17 05:36 Hct 30.8 % (37.5-50.1) L 10/29/17 05:36 Sodium 135 mEq/L (136-145) L 10/29/17 05:36 Creatinine 0.67 mg/dL (0.70-1.30) L 10/29/17 05:36 BUN/Creatinine Ratio 33 (6-26) H 10/29/17 05:36 Glucose 119 mg/dL (70-105) H 10/29/17 05:36 Calcium 8.0 mg/dL (8.6-10.3) L 10/29/17 05:36 Alkaline Phosphatase 24 Units/L (34-104) L 10/27/17 07:16 - VTE Documentation of Mechanical Device: Venous foot pump, device Consult Discharge Plan - Plan Referrals: Chelsy Aviles PAC [Physician Service Consultant] - 11/11/17 9:00 am () Sonu Herron CNP [Partnered Physician] - 12/17/17 10:00 am Jake Ferderick DO [Primary Care Provider] -
[2017-10-29] MEDS: Ringers Solution, Lactated 1,000 ML IVC SCH ×2 (17:48→17:49)
[2017-10-29] MEDS: Latanoprost 2.5 ML BOTTLE BOTH EYES SCH (20:28)
[2017-10-30] MEDS: *HR* Enoxaparin 30 MG/0.3 ML SYRINGE SQ SCH (05:34)
[2017-10-30] MEDS: Ascorbic Acid 500 MG TABLET PO SCH (08:04)
[2017-10-30] MEDS: Multivit/Ca/Min/Fe/FA 1 TAB TABLET PO SCH (08:04)
[2017-10-30] MEDS: Ciprofloxacin OPTH Soln 2.5 ML BOTTLE BOTH EYES SCH ×2 (08:05→14:18)
[2017-10-30 11:17] VITALS: BP 114/76
--- NOTE | 2017-10-30 13:03 | Discharge Summary ---
Date of Encounter: 11/06/17 Time of Encounter: 13:02 - Discharge Medications Prescriptions: HYDROcodone/Acet 5/325 mg [[place] 5-325 mg] 1 tab PO Q6HR PRN 5 Days #20 tablet PRN Reason: Severe Pain Aspirin Enteric Coated [Aspirin EC] 325 mg PO BID 14 Days #28 tablet.dr [place] [Colace] 100 mg PO BID 30 Days #60 capsule Ferrous Sulfate 325 mg PO BIDWM 30 Days #30 tablet MOM Conc [MILK OF MAGNESIA conc] 5 ml PO HS PRN 30 Days #60 ud.liq PRN Reason: Constipation Home Medications: Mv-Mn/FA/Vit K1/Lycop/Lut/Zeax [Ocuvite Eye + Multi Tablet] 1 tab PO BID [History] Ciprofloxacin OPTH Soln [Ciloxan OPTH Soln] 1 drop OP QID 10/26/17 [History] Latanoprost [Xalatan] 1 drop OP HS 10/26/17 [History] Timolol Maleate 0.5% 1 drop OP BID 10/26/17 [History] Ascorbic Acid [Vitamin C] 500 mg PO BIDWM tablet 10/30/17 [Rx] Aspirin Enteric Coated [Aspirin EC] 325 mg PO BID 14 Days #28 tablet. [Rx] Docusate [Colace] 100 mg PO BID 30 Days #60 capsule 10/30/17 [Rx] Ferrous Sulfate 325 mg PO BIDWM 30 Days #30 tablet 10/30/17 [Rx] HYDROcodone/Acet 5/325 mg [[place] 5-325 mg] 1 tab PO Q6HR PRN 5 Days #20 tablet 10/30/17 [Rx] MOM Conc [MILK OF MAGNESIA conc] 5 ml PO HS PRN 30 Days #60 ud.liq 10/30/17 [Rx] Allergies/Adverse Reactions: 3 Allergy/AdvReac Type Severity Reaction Status Date / Time morphine AdvReac Hallucinati Verified 10/26/17 20:24 ng Date of admission: 10/27/17 01:20 Primary care physician: Jake Frederick, Consults: 10/27/17 23:13 Consult to Nurse Navigator [CONS] Routine Comment: ortho navigator Consult to Occupational Therapy [CONS] Routine Comment: Evaluate, develop and implement POC Reason for Consult: total hip replacement Consult to Physical Therapy [CONS] Routine Comment: Evaluate, develop and implement POC Reason for Consult: total hip replacement Consult to [employer] [CONS] Routine Reason for SW Consult: post op joint replacement RT Post Op Consult [CONS] Routine Discharging clinician: Hi Moise - Patient Status Disposition: Transfer SNF Condition: Fair - Discharge Instructions Follow Up With: Chelsy Aviles PAC [Physician Pta] - 11/11/17 9:00 am () Sonu Herron RN OR LVN [Partnered Physician] - 12/17/17 10:00 am Additional Instructions: Discharge Instructions: Total Hip Replacement Please call [facility] ([phone]), your Primary Care Physician, or report to the Emergency Room if you have any of the following symptoms: Nausea, vomiting, fever greater that 101.5, swelling, chest pain, shortness of breath, increased pain/redness/drainage/odor for your incision site, numbness/ tingling, or any other concerning symptoms. ACTIVITY:Weight-bearing as tolerated for 8 weeks with hip dislocation precautions that physical therapy taught you. You may progress as tolerated under the guidance of your physical therapist. You do not need to sleep with a pillow between your legs. You can also seep on the operative side or on your stomach. MEDICATIONS: Upon discharge resume your home medications. Take all the medications as prescribed. Take a stool softener if taking narcotic pain medications. Stool softeners are only effective if you drink enough fluids. Drink 6-8 glass of water or fluids a day, unless this is not allowed for another health problem. Despite using stool softeners, if you haven't had a bowel movement in 3 days, please switch to a gentle laxative. Gentle laxatives are sold over the counter. You should have a bowel movement within 24 hours, if not call the office. You will be discharged from the hospital with a prescription for pain medication. You are encouraged to decrease the use of narcotic pain medication as tolerated. Should you require a refill, please call the office. [facility] prescribes narcotic pain medication for only 4-6 weeks after surgery. If you require pain medication beyond this time period, you may be referred to your Primary Care Physician or to the Pain Clinic for further evaluation. Plan ahead for refills on pain medication as many narcotics either need to be picked up at the office or mailed. It is best to call 48-72 hours in advance of needing a prescription refill so you don't run out of medication. To help control the post-operative pain, you may take NSAIDs (Aleve,Advil, Motrin, ibuprofen, naprosyn) or Tylenol as prescribed on the bottle in addition to the pain medication. ANTICOAGULATION (blood thinners): Continue your Aspirin, Lovenox or Coumadin as prescribed to help prevent a blood clot in the leg or in the lungs. As long as your incision remains dry and you tolerate the NSAIDs (Aleve, Advil, Motrin, Ibuprofen, Naprosyn), it is OK to use the NSAIDS while you are taking your anticoagulation medication. Should your incision start to drain, stop the NSAID and contact our office. Common symptoms of blood clot in the legs include: localized pain, swelling, calf tenderness, redness or discoloration of the skin. Blood clot in the lung symptoms include: shortness of breath, rapid pulse, sweating, and chest pain that worsens with deep breathing, coughing up blood, lightheadedness, feelings of anxiety. If you experience any of these symptoms notify your physician immediately, go to the emergency room, or if having trouble breathing, call 911. WOUND CARE: Leave the dressing on for 7 to 10days. You may change the dressing if it is saturated greater than 50%. Do not get the dressing wet at anytime. Wash your hands with antibacterial soap, rinse and dry prior to any wound care. If you have rajeev the visiting nurse or rehab facility can remove the stapes 10-14 days after surgery and place steri-strips across the wound. Leave the steri-strips in place until they fall off on their own. You may let water from the shower run on top of the steri-strips. If you do not have a visiting nurse or rehab facility, you will need to return to the office at 10-14 days for the rajeev to be removed. If you have itching or redness around the dressing call the office. FOLLOW-UP: Please follow up with your surgeon in the orthopedic clinic in 6 weeks from the day of surgery. If you have rajeev that need to be removed, you will need to come back to the office in 10-14 days from the day of surgery. Interval History: Hospital Course: Mr. Bender is an 87 year old male who presents to the ER after he slipped and fell outside walking to a doctor's office. He landed on his left side sustaining significant pain. He was brought to ER and was found to have a left hip fracture. He was admitted to hospitalist service with a consultation to orthopedics. He subsequently underwent left hemiarthroplasty surgery and began PT/OT. Rehab was recommended and he was sischarged t rhab in stable contdition. Assesment and plan: Left hip femoral neck fracture, displaced S/p Left hip hemiarthroplasty Pain control with Tylenol and [place] PT/OT D/C to rehab today Physical Exam: General appearance: Present: cooperative, A&O X 3, pleasant, no acute distress, answers questions appropriately - Head Head exam: Present: atraumatic, normocephalic - Eye Eye exam: Present: PERRL, conjuntiva pink, sclera anicteric Pupils: Present: PERRL - Neck Neck exam general surgery: Present: supple, trachea midline. Absent: lymphadenopathy - Respiratory Respiratory exam: Present: CTAB. Absent: accessory muscle use, rales, rhonchi, wheezes - Cardiovascular Cardiovascular exam: Present: RRR, +S1, +S2. Absent: diastolic murmur, gallop, rubs, systolic murmur - GI/Abdominal GI/Abdominal exam: Present: normal bowel sounds, soft, no peritoneal signs. Absent: distended, tenderness - Neurological Exam Neurological exam: Present: oriented X3, no focal deficits, pronater drift, facial droop, speech deficit Left foot drop noted - Skin Skin exam: Present: dry, intact Hospital course: Mr. Bender is a 87 year old male Time spent discussing smoking cessation with patient: more than 10 minutes - Time Spent with Patient Total time spent providing and/or coordinating discharge services: Greater than 30 minutes - Constitutional Vitals: Temp Pulse Resp BP Pulse Ox 97.8 F 85 16 114/76 96 10/30/17 11:15 10/30/17 11:15 10/30/17 11:15 10/30/17 11:15 10/30/17 11:15 General appearance: Present: cooperative, A&O X 3, pleasant, no acute distress, answers questions appropriately - VTE Documentation of Mechanical Device: Intermittent pneumatic compression device
--- NOTE | 2017-10-30 13:20 | Orthopedics Progress Note ---
Date of Encounter: 10/30/17 Time of Encounter: 12:30 - Assessment and Plan (1) Fractured femoral neck Current Visit: Yes Status: Acute POD#3 s/p left hip hemiarthroplasty Continue PT/OT, WBAT. Ice to hip as needed dressings to be changed before discharge. applied deal boot while in bed to prevent heel pressure sores, no pressure wounds noted at this time but patient has tenderness to left heel DVT prophylaxis and pain control per hospitalist [facility] Follow up with Chelsy Aviles PA-C in [facility] office at [facility]. Qualifiers: Encounter type: initial encounter Fracture type: closed Laterality: left Qualified Code(s): S72.002A - Fracture of unspecified part of neck of left femur, initial encounter for closed fracture Subjective Principal diagnosis: POD#3 s/p Left hip hemiarthroplasty Interval history: Patient doing well today. No events overnight. States heel pain improved after deal boot application. Pain well controlled. No calf tenderness. Participating in therapy. Nurse states there was concern for foot drop however patient was able to move ankle this afternoon and he states he has some stiffness this morning but its better now. Objective Vital signs: Vital Signs Temp Pulse Resp BP Pulse Ox 10/30/17 11:15 97.8 F 85 16 114/76 96 10/30/17 07:25 98.1 F 84 16 102/63 96 10/30/17 00:18 98.1 F 90 14 117/75 99 10/29/17 17:25 99.8 F H 107 17 115/72 99 Intake and Output 10/29/17 10/30/17 10/30/17 23:59 07:59 15:59 Output Total 125 / 125 Balance -125 / -125 Output: Urine 125 / 125 Other: Meal Breakfast Percent of Meal Consumed 50% Weight 70 kg Patient Weight 10/30/17 23:59 Weight 70 kg Incision: clean and dry (dressings c/d/i, no visible drainage or surorunding erythema. no calf tenderness, good dorsiflexion of foot) - Labs CBC & BMP: 10/29/17 05:36 10/29/17 05:36 Labs: Abnormal lab results Hgb 9.9 g/dL (12.9-16.9) L D 10/29/17 05:36 Hct 30.8 % (37.5-50.1) L 10/29/17 05:36 Sodium 135 mEq/L (136-145) L 10/29/17 05:36 Creatinine 0.67 mg/dL (0.70-1.30) L 10/29/17 05:36 BUN/Creatinine Ratio 33 (6-26) H 10/29/17 05:36 Glucose 119 mg/dL (70-105) H 10/29/17 05:36 Calcium 8.0 mg/dL (8.6-10.3) L 10/29/17 05:36 Alkaline Phosphatase 24 Units/L (34-104) L 10/27/17 07:16 - VTE Documentation of Mechanical Device: Intermittent pneumatic compression device Consult Discharge Plan - Plan Referrals: Chelsy Aviles, PAC [Physician Repair Clerk] - 11/11/17 9:00 am () Sonu Herron, THERMOSPRAY OPERATOR [Partnered Physician] - 12/17/17 10:00 am Jake Frederick DO [Primary Care Provider] - Prescriptions: HYDROcodone/Acet 5/325 mg [[place] 5-325 mg] 1 tab PO Q6HR PRN 5 Days #20 tablet PRN Reason: Severe Pain Aspirin Enteric Coated [Aspirin EC] 325 mg PO BID 14 Days #28 tablet. Docusate [Colace] 100 mg PO BID 30 Days #60 capsule Ferrous Sulfate 325 mg PO BIDWM 30 Days #30 tablet MOM Conc [MILK OF MAGNESIA conc] 5 ml PO HS PRN 30 Days #60 ud.liq PRN Reason: Constipation
--- NOTE | 2017-10-30 15:42 | Physician Discharge Referral ---
ExtendedCare Referral Info Provider in Charge: [facility] Level of Care: Skilled Expected Duration of Placement: 1-2 weeks Prognosis: Good Aware of Diagnosis: Patient, Family Aware of Prognosis: Patient, Family - Transfer Medications Prescriptions: HYDROcodone/Acet 5/325 mg [[place] 5-325 mg] 1 tab PO Q6HR PRN 5 Days #20 tablet PRN Reason: Severe Pain Aspirin Enteric Coated [Aspirin EC] 325 mg PO BID 14 Days #28 tablet.dr [place] [Colace] 100 mg PO BID 30 Days #60 capsule Ferrous Sulfate 325 mg PO BIDWM 30 Days #30 tablet MOM Conc [MILK OF MAGNESIA conc] 5 ml PO HS PRN 30 Days #60 ud.liq PRN Reason: Constipation Home Medications: Mv-Mn/FA/Vit K1/Lycop/Lut/Zeax [Ocuvite Eye + Multi Tablet] 1 tab PO BID [History] Ciprofloxacin OPTH Soln [Ciloxan OPTH Soln] 1 drop OP QID 10/26/17 [History] Latanoprost [Xalatan] 1 drop OP HS 10/26/17 [History] Timolol Maleate 0.5% 1 drop OP BID 10/26/17 [History] Ascorbic Acid [Vitamin C] 500 mg PO BIDWM tablet 10/30/17 [Rx] Aspirin Enteric Coated [Aspirin EC] 325 mg PO BID 14 Days #28 tablet. [Rx] Sree [Colace] 100 mg PO BID 30 Days #60 capsule 10/30/17 [Rx] Ferrous Sulfate 325 mg PO BIDWM 30 Days #30 tablet 10/30/17 [Rx] HYDROcodone/Acet 5/325 mg [[place] 5-325 mg] 1 tab PO Q6HR PRN 5 Days #20 tablet 10/30/17 [Rx] MOM Conc [MILK OF MAGNESIA conc] 5 ml PO HS PRN 30 Days #60 ud.liq 10/30/17 [Rx] Allergies/Adverse Reactions: 3 Allergy/AdvReac Type Severity Reaction Status Date / Time morphine AdvReac Hallucinati Verified 10/26/17 20:24 ng - Respiratory Orders Smoking Cessation: Smoking cessation has been advised. For more information, call the [place] Tobacco Quit Line at 1-603-FYQV-NOW. - Mobility Orders Ambulate - Rehabiliation Orders Rehab Potential: Good Rehab Orders: Evaluation for Physical Therapy, Evaluation for Occupational Therapy CERTIFICATION: I certify that the transfer of the above named patient to an Extended Care Facility is necessary for the continuing treatment of the diagnosis listed. The above information is true and accurate reflection of patient's current condition. Confidential - Redisclosure prohibited without a patient's written consent.
[2017-10-31] MEDS ORDERED: Aspirin Enteric Coated 325 MG Tablet PO SCH (09:00)
== END 2017-10-30 16:46 | DRG 470 ==
LOC: EMEROO 15:42 → 3NENU 15:42
PROVIDERS: ADMIT Hospitalist; ATTEND Hospitalist

== ENCOUNTER 2019-04-17 07:37 | Inpatient (IN) ==
[2019-04-17] MEDS ORDERED: Isovue-370 500 ML BOTTLE IVP ONE (08:02)
--- NOTE | 2019-04-17 08:02 | Emergency Department Note ---
Disposition Clinical Impression: Hyponatremia, Pleural effusion Back pain Qualifiers: Back pain location: low back pain Chronicity: chronic Back pain laterality: unspecified Sciatica presence: without sciatica Qualified Code(s): M54.5 - Low back pain Disposition: Admitted As Inpatient Referrals: Jake Frederick DO [Primary Care Provider] - Time of Disposition: 10:20 Back Pain HPI - General Stated Complaint: Back pain Time Seen by Provider: 04/17/19 07:41 Source: patient, EMS Mode of arrival: EMS Limitations: no limitations Nursing Notes Reviewed: Yes Vital Signs Reviewed: Yes - History of Present Illness HPI Narrative: 88 year old male with a history of CVA with residual left sided weakness who presents complaining of constant left sided low back pain that began 2 weeks ago. He states the pain is worse in certain positions and denies any position that resolves the pain. Pain worsens with movement and is intermittent. Patient has been using Tylenol at home with temporary relief of pain. He denies trauma or fall. Patient denies incontinence, extremity weakness, and numbness or tingling. He reports that the pain intermittently radiates to the right side of his low back as well. Patient's states that he is very sedentary at home and has had decreased appetite over the past 2 weeks with some diarrhea. He denies fever. Patient also has a history of SBO and has been having diarrhea, no formed stools, no abdominal pain or vomiting. Pt Subjective Complaint: back pain Onset (ago): week(s) (2) Duration: constant Similar Symptoms Previously: No Location: lumbar spine Pain Severity: severe Pain Scale: 9 Quality: dull, aching Radiation: none Improves with: none Worsens with: movement - Related Data Home Medications Medication Instructions Recorded Confirmed No Known Home Drugs 04/17/19 04/17/19 Allergies Allergy/AdvReac Type Severity Reaction Status Date / Time morphine AdvReac Hallucinati Verified 10/26/17 20:24 ng All systems ED: reviewed and negative except as stated. Review of Systems: As Per HPI Constitutional: Reports: weakness (generalized). Denies: fever, chills Gastrointestinal: Reports: nausea, diarrhea. Denies: abdominal pain, vomiting Genitourinary: Reports: dysuria Musculoskeletal: Reports: back pain Integumentary: Denies: abrasion Neurological: Denies: headache, weakness, paresthesias Past Medical History - Past Medical History Attestation: Yes The following information was validated with the patient. Source: patient Medical history: Reports: glaucoma, other Surgical history: Reports: other (tonsillectomy; thoracic surgery for esophageal perforation) Psychiatric history: Reports: no psych history - Social History Smoking Status: Never smoker Smokeless Tobacco Status: No Alcohol use: Reports: none Drug use: Reports: none Physical Exam - General Limitations: no limitations General appearance: alert, in no apparent distress - Head Head exam: atraumatic, normocephalic - Eye Eye exam: Present: normal appearance, EOMI - ENT ENT exam: normal exam, normal oropharynx - Neck Neck exam: Present: normal inspection, trachea midline - Chest Chest inspection: Present: normal inspection, symmetric chest wall rise - Respiratory Respiratory exam: Present: normal lung sounds bilaterally. Absent: respiratory distress, wheezes - Cardiovascular Cardiovascular exam: Present: regular rate, normal rhythm - Abdominal Exam Abdominal exam: Present: soft, Non-Tender, normal bowel sounds. Absent: distention, guarding, rebound - Extremities Exam Extremities exam: Present: normal capillary refill, other (No hip tenderness to palpation). Absent: pedal edema, calf tenderness - Back Exam Back exam: Present: other (No midline spinal tenderness, no paraspinal tenderness to palpation. Negative straight leg raise bilaterally) - Neurological Exam Neurological exam: Present: alert, oriented X3. Absent: motor sensory deficit - Expanded Neurological Exam Motor strength - LUE: 5/5 Motor strength - RUE: 5/5 Motor strength - LLE: 4/5 (chronic from prior CVA) Motor strength - RLE: 5/5 Upper motor neuron exam: toño neglect: Absent bilaterally - Psychiatric Psychiatric exam: Present: normal affect, normal mood - Skin Skin exam: Present: warm, dry. Absent: diaphoresis, pallor Course Vital Signs Temperature 98.7 F 04/17/19 07:38 Pulse Rate 87 04/17/19 07:38 Respiratory Rate 16 04/17/19 07:38 Blood Pressure 155/82 04/17/19 07:38 O2 Sat by Pulse Oximetry 98 04/17/19 07:38 Temperature 98.7 F 04/17/19 07:38 Pulse Rate 87 04/17/19 07:38 Respiratory Rate 16 04/17/19 07:38 Blood Pressure 155/82 04/17/19 07:38 O2 Sat by Pulse Oximetry 98 04/17/19 07:38 Oxygen Delivery Oxygen Delivery Room Air Back Pain/Injury - MDM Narrative Medical decision making narrative: Ton is complaining of intermittent back ain that is positional and worsens with movement. He states it goes from his left to his right at times. He is still ambulating with a walker. No red flag signs, no fever, no incontinence, no numbness or tingling, lower extremity weakness that is nail, no history of instrumentation to his back. Patient states he took a Tylenol before coming in and currently he has pain-free. Nontoxic appearing. He does have a history of an small bowel objection and has been having diarrhea and a decreased appetite. No vomiting. Abdomen is soft, non-peritoneal, normal bowel sounds. We will obtain CT abdomen and pelvis with IV and no oral contrast and CT of his lumbar s pine, x-ray of his pelvis to evaluate. He does have a history of a left hip total arthroplasty. Denies any falls or trauma. EKG and basic lab work will be obtained for possible preop workup. 09:30 Labs reviewed. Patient has hyponatremia with sodium 127. He was previously at 130 and has been normalized before. This could be due to his decreased by mouth intake. We will give him a liter normal saline IV fluid bolus. 10:45 CT imaging reviewed. Patient has no acute fractures noted. He has degenerative disease of the right hip. He has increasing size of bilateral pleural effusions. He also has atelectasis. Do not suspect pneumonia. Dr. Sheppard, hospitalist, accepts admission at 10:10 - Medical Records Medical records reviewed: Yes I reviewed the patient's medical records. - Lab Data Lab results reviewed: Yes I reviewed the patient's lab results. Result diagrams: 04/17/19 08:51 04/17/19 08:51 Lab Results 04/17/19 04/17/19 04/17/19 Range/Units 08:51 08:51 08:51 WBC 8.4 (4.3-11.1) K/mcL RBC 3.91 L (4.19-5.50) M/mcL Hgb 12.0 L (12.9-16.9) g/dL Hct 36.5 L (37.5-50.1) % MCV 93.4 (83.0-100.0) fL MCH 30.7 (28.0-33.3) pg MCHC 32.9 (31.6-35.5) g/dL RDW 13.2 (11.5-14.5) % Plt Count 262 (140-400) K/mcL MPV 9.4 (9.4-12.4) fL Immature Gran % 0.5 (0-4) % Seg Neutrophils % 64.3 % Lymphocytes % 17.8 % Monocytes % 12.5 % Eosinophils % 4.2 % Basophils % 0.7 % Neutrophils # 5.4 (1.6-8.9) K/mcL Lymphocytes # 1.5 (0.6-4.6) K/mcL Monocytes # 1.1 (0.0-1.3) K/mcL Eosinophils # 0.4 (0.0-0.6) K/mcL Basophils # 0.1 (0.0-0.2) K/mcL Nucleated RBCs/100 WBC 0.4 H (0) /100 WBC PT 12.0 (9.4-12.1) Seconds INR 1.1 Sodium 127 L (136-145) mEq/L Potassium 4.2 (3.5-5.1) mEq/L Chloride 96 L (98-107) mEq/L Carbon Dioxide 23 (23-29) mEq/L BUN 18 (8-23) mg/dL Creatinine 0.98 (0.70-1.30) mg/dL Est GFR ( Amer) > 60 (> 60) Est GFR (Non-Af Amer) > 60 (> 60) BUN/Creatinine Ratio 18 (6-26) Glucose 100 (70-105) mg/dL Calculated Osmolality 266 L (280-300) Calcium 9.3 (8.6-10.3) mg/dL Urine Color (Yellow) Urine Clarity (Clear) Urine pH (5.0-8.0) pH Units Ur Specific [place] (1.010-1.025) Urine Protein (Neg-Trace) mg/dL Urine Glucose (UA) (Normal) mg/dL Urine Ketones (Negative) mg/dL Urine Blood (Negative) Urine Nitrite (Negative) Urine Bilirubin (Negative) Urine Urobilinogen (Normal) mg/dL Ur Leukocyte Esterase (Negative) Ur Culture Indicated? (NO) 07/14/19 Range/Units 09:20 WBC (4.3-11.1) K/mcL RBC (4.19-5.50) M/mcL Hgb (12.9-16.9) g/dL Hct (37.5-50.1) % MCV (83.0-100.0) fL MCH (28.0-33.3) pg MCHC (31.6-35.5) g/dL RDW (11.5-14.5) % Plt Count (140-400) K/mcL MPV (9.4-12.4) fL Immature Gran % (0-4) % Seg Neutrophils % % Lymphocytes % % Monocytes % % Eosinophils % % Basophils % % Neutrophils # (1.6-8.9) K/mcL Lymphocytes # (0.6-4.6) K/mcL Monocytes # (0.0-1.3) K/mcL Eosinophils # (0.0-0.6) K/mcL Basophils # (0.0-0.2) K/mcL Nucleated RBCs/100 WBC (0) /100 WBC PT (9.4-12.1) Seconds INR Sodium (136-145) mEq/L Potassium (3.5-5.1) mEq/L Chloride (98-107) mEq/L Carbon Dioxide (23-29) mEq/L BUN (8-23) mg/dL Creatinine (0.70-1.30) mg/dL Est GFR ( Amer) (> 60) Est GFR (Non-Af Amer) (> 60) BUN/Creatinine Ratio (6-26) Glucose (70-105) mg/dL Calculated Osmolality (280-300) Calcium (8.6-10.3) mg/dL Urine Color Yellow (Yellow) Urine Clarity Clear (Clear) Urine pH 6.0 (5.0-8.0) pH Units Ur Specific [place] 1.014 (1.010-1.025) Urine Protein Negative (Neg-Trace) mg/dL Urine Glucose (UA) Normal (Normal) mg/dL Urine Ketones Trace H (Negative) mg/dL Urine Blood Negative (Negative) Urine Nitrite Negative (Negative) Urine Bilirubin Negative (Negative) Urine Urobilinogen Normal (Normal) mg/dL Ur Leukocyte Esterase Negative (Negative) Ur Culture Indicated? NO (NO) - Radiology Data Radiology results reviewed: Yes I reviewed the patient's radiology results. Abdomen/Pelvis CT 04/17/19 08:02 IMPRESSION: Interval development of small right pleural effusion and increase in size of left pleural effusion. Associated bilateral lower lobe dependent airspace disease is noted, likely atelectasis. Pneumonia is not excluded. No acute intra-abdominopelvic abnormality. D/ / Avis Tovar Cha, MD / Avis Tovar Cha, MD Interpreting Provider: Avis Tovar Cha, MD Lumbar Spine CT 04/17/19 08:02 IMPRESSION: 1. No acute osseous abnormality of the lumbar spine. 2. Bony demineralization. 3. Minimal degenerative changes. 4. Please refer to dedicated CT report of the abdomen and pelvis for further details. D/ / 04/17/2019 10:46:31 Anna Hernández MD / [place] Interpreting Provider: Anna Hernández MD Pelvis X-Ray 04/17/19 08:02 IMPRESSION: 1. No acute osseous abnormality of the pelvis. 2. Status post left hip arthroplasty. No complication. 3. Moderate degenerative changes of the right hip. 4. Bony demineralization. D/ / 04/17/2019 09:06:56 Anna Hernández MD / [place] Interpreting Provider: Anna Hernández MD - EKG Data EKG attestation: Yes I reviewed and interpreted this EKG. EKG results narrative: EKG obtained at 928 shows sinus rhythm with heart rate 91, ME interval 160, QRS duration 127, QTC 469, no ST elevation or depression. Much artifact. Compared to old EKG on 10/27/2017 which shows no new changes. Attestation Statement - Attestation Attestation: Patient was seen with resident physician. I reviewed the history, physical, assessment and plan, and agree with the findings. I also personally evaluated this patient and had [id number] time with this patient. 88-year-old male presents same or Department chief complaint of back pain. Patient states pain started a couple weeks ago. Occasionally like lower back on the left but also some hip pain on the right in the left. He has had a history of bowel obstruction of some sort. He said some diarrhea. He also says his been intermittently constipated. Said the reason he is here today as his made him come and she was sick appearing him complain. Denies fevers or chills. No chest pain or shortness of breath. Review of systems as above remainder negative. Physical exam vital signs are stable. ENT is unremarkable. Heart regular rhythm and rate. Lungs clear. Abdomen is distended nontender positive bowel sounds no masses. Extremities unremarkable. Cannot reproduce patient's pain with palpation of the back or the hips. Skin no obvious rashes. Psych normal. Neurologically no new deficits. ED course. With the patient's history about structural get a CT scan of the abdomen and pelvis. This also evaluate the spines in the thoracic lumbar area. We will also get an AP pelvis just to look at the hips. X-rays did not reveal any acute fractures he does have some DJD in the right hip. He also has a total hip replacement on the opposite side. Labs however revealed hyponatremia. CT the abdomen and pelvis demonstrated a right small pleural effusion as well. Patient will need electrolyte correction and evaluation for his pleural effusion. We spoke the hospitalist service agreed to accept patient for admission. Agree with resident physician assessment and plan. I agree with resident physician assessment and plan. ED procedures.I reviewed the patient's EKG as well as the resident physician interpretation and I agree with the findings.
[2019-04-17 09:20] LABS: Basophils # 0.1 K/mcL (0.0-0.2); Basophils % 0.7 %; Eosinophils # 0.4 K/mcL (0.0-0.6); Eosinophils % 4.2 %; Hematocrit 36.5 % (37.5-50.1); Immature Granulocytes % 0.5 % (0-4); Lymphocytes # 1.5 K/mcL (0.6-4.6); Lymphocytes % 17.8 %; Mean Corpuscular HGB Conc 32.9 g/dL (31.6-35.5); Mean Corpuscular Hemoglobin 30.7 pg (28.0-33.3); Mean Corpuscular Volume 93.4 fL (83.0-100.0); Mean Platelet Volume 9.4 fL (9.4-12.4); Monocytes # 1.1 K/mcL (0.0-1.3); Monocytes % 12.5 %; Neutrophils # 5.4 K/mcL (1.6-8.9); Nucleated Red Blood Cells 0.4 /100 WBC (0); Platelet Count 262 K/mcL (140-400); Red Blood Count 3.91 M/mcL (4.19-5.50); Red Cell Distribution Width 13.2 % (11.5-14.5); Segmented Neutrophils % 64.3 %; White Blood Count 8.4 K/mcL (4.3-11.1)
[2019-04-17 09:23] LABS: BUN/Creatinine Ratio 18 (6-26); Blood Urea Nitrogen 18 mg/dL (8-23); Calcium 9.3 mg/dL (8.6-10.3); Carbon Dioxide 23 mEq/L (23-29); Chloride 96 mEq/L (98-107); Glucose 100 mg/dL (70-105); Osmolality,Calculated 266 (280-300); Potassium 4.2 mEq/L (3.5-5.1); Sodium 127 mEq/L (136-145); eGFR For African Americans > 60 (> 60); eGFR For Non-African Americans > 60 (> 60)
[2019-04-17 09:29] LABS: INR 1.1
[2019-04-17 09:31] LABS: Bilirubin,Urine Negative (Negative); Blood,Urine Negative (Negative); Clarity,Urine Clear (Clear); Color,Urine Yellow (Yellow); Glucose,Urine (UA) Normal (Normal); Ketones,Urine Trace mg/dL (Negative); Leukocyte Esterase,Urine Negative (Negative); Nitrite,Urine Negative (Negative); Protein,Urine Negative (Neg-Trace); Specific Gravity,Urine 1.014 (1.010-1.025); Urobilinogen,Urine Normal (Normal)
[2019-04-17] MEDS ORDERED: 0.9 % Sodium Chloride 1,000 ML IVC ONE (09:31)
[2019-04-17] MEDS ORDERED: Naloxone 0.4 MG/ML INJ IVP PRN (11:36)
--- NOTE | 2019-04-17 11:38 | Internal Med History&Physical ---
Date of Encounter: 04/17/19 Time of Encounter: 11:36 Internal Medicine - H&P: HPI Chief complaint: back pain Admitted From: Home Plans for Post Hospital Care: Home History of present illness: Mr. Bender is a 88 year old male past medical history of CVA and left hip fracture in 2018, decreased vision due to glaucoma and macular degeneration came in to complain of back pain. Has been ongoing for about 2 weeks. Patient was here about a week ago and at that time was felt due to constipation which has been complaint for him for wide. Patient was discharged at the time. Patient came back with complain of back pain. He is difficulty hearing and lateral history obtained from was at bedside and is reliable. Denies any fevers chills nausea vomiting or diarrhea. Does mention has decreased appetite and do es not eat much. She thinks he lost weight but could not quantify for me. Denies any trauma or any falls. Denies any skin rash. Denies any urinary difficulties. He does have some prostate problem and has to pass urine frequently but denies any burning urination or abdominal pain. Patient was seen in the ER today with back pain and had imaging done. CT abdomen showed small right pleural effusion and slightly increased left pleural effusion with associated atelectasis but pneumonia could not be excluded. Patient denies any difficulty breathing or fevers. However it appears the pain is around the area of findings on the CT scan. Patient denies any leg swelling currently or in the past. Denies any previous cardiac history. Admission was requested for electrolyte abnormalities with decreased oral intake. Denies any allergy. Does not take any regular medications. Has a living will and CODE STATUS is DNR/DNI arrest. Past Med Surg Social Fam HX - Past Medical History Medical history: glaucoma, other Additional medical history: macular degeneration Psychiatric history: no psych history - Past Surgical History Surgical History: other (tonsillectomy; thoracic surgery for esophageal perforation) Additional surgical history: EGD. Esophageal repair. tonsils. L Hip Replacement - Social History Smoking Status: Never smoker Smokeless Tobacco Status: No Alcohol use: none Drug use: none - Family History Mother Living Status: Hx Family Cancer: Yes (spinal cancer) Internal Medicine - H&P: Meds No Known Home Drugs 04/17/19 [History] Allergy/AdvReac Type Severity Reaction Status Date / Time morphine AdvReac Hallucinati Verified 10/26/17 20:24 ng All Systems PM: A 10-system review of systems was performed and is negative for pertinent findings except as documented above in the HPI. - Constitutional Vitals: Temp Pulse Resp BP Pulse Ox 98.7 F 87 16 155/82 98 04/17/19 07:38 04/17/19 07:38 04/17/19 07:38 04/17/19 07:38 04/17/19 07:38 Exam: Constitutional: Vitals as noted. Conversant. No Apparent Distress. Eyes : Sclera white, conjunctiva clear, no lid lag, PEARLA. ENT : Grossly normal hearing. Oropharyngeal exam unremarkable. dry mucus membranes. Respiratory : No accessory muscle use. Crackles on Lt lung base Cardiovascular : RRR, +S1, +S2. no murmur, gallop, rubs. No chest wall tenderness GI/Abdominal : Soft, Non-tender, Non-distended, normal bowel sounds, no peritoneal signs. no orgenomegaly or mass appreciated. no hernia. Musculoskeletal: no deformity noted. no edema or cyanosis. warm extremities, pulses palpable and symmetrical in UE/LE. no calf tenderness. Neurological: AO X2, CN II-XII grossly intact, grossly normal motor and sensory exam. mild lt sided weakness Skin: No skin rash, lesions or ulcers noted. Internal Med - H&P Results - Labs CBC & Chem 7: 04/17/19 08:51 04/17/19 08:51 Labs: Short CBC 04/17/19 Range/Units 08:51 WBC 8.4 (4.3-11.1) K/mcL Hgb 12.0 L (12.9-16.9) g/dL Hct 36.5 L (37.5-50.1) % Plt Count 262 (140-400) K/mcL Neutrophils # 5.4 (1.6-8.9) K/mcL BMP 04/17/19 08:51 Sodium 127 L Potassium 4.2 Chloride 96 L Carbon Dioxide 23 BUN 18 Creatinine 0.98 Glucose 100 Calcium 9.3 Urine 04/17/19 Range/Units 09:20 Urine Color Yellow (Yellow) Urine Clarity Clear (Clear) Urine pH 6.0 (5.0-8.0) pH Units Ur Specific [place] 1.014 (1.010-1.025) Urine Protein Negative (Neg-Trace) mg/dL Urine Glucose (UA) Normal (Normal) mg/dL - EKG Data -: EKG Interpreted by Myself EKG shows normal: sinus rhythm (IVCD, possible old infarct) - Impressions ITS Impressions Abdomen/Pelvis CT 04/17/19 08:02 IMPRESSION: Interval development of small right pleural effusion and increase in size of left pleural effusion. Associated bilateral lower lobe dependent airspace disease is noted, likely atelectasis. Pneumonia is not excluded. No acute intra-abdominopelvic abnormality. D/ / Avis Tovar Cha, MD / Avis Tovar Cha, MD Interpreting Provider: Avis Tovar Cha, MD Lumbar Spine CT 04/17/19 08:02 IMPRESSION: 1. No acute osseous abnormality of the lumbar spine. 2. Bony demineralization. 3. Minimal degenerative changes. 4. Please refer to dedicated CT report of the abdomen and pelvis for further details. D/ / 04/17/2019 10:46:31 Anna Hernández MD / [place] Interpreting Provider: Anna Hernández MD Pelvis X-Ray 04/17/19 08:02 IMPRESSION: 1. No acute osseous abnormality of the pelvis. 2. Status post left hip arthroplasty. No complication. 3. Moderate degenerative changes of the right hip. 4. Bony demineralization. D/ / 04/17/2019 09:06:56 Anna Hernández MD / [place] Interpreting Provider: Anna Hernández MD - Assessment and Plan (1) Back pain Current Visit: Yes Status: Acute Assessment and plan: Patient has back pain ongoing for about 2-3 weeks Initially suspected due to constipation however now that is resolved. Imaging showing left-sided pleural effusion with associated atelectasis however pneumonia is a possibility. That could be leading to his back pain. We will hold antibiotics for now. Obtain pro-calcitonin level. We will get diagnostic thoracentesis tomorrow morning. Nothing by mouth after midnight. Qualifiers: Back pain location: thoracic back pain Chronicity: acute Back pain laterality: left Qualified Code(s): M54.6 - Pain in thoracic spine (2) Hyponatremia Current Visit: Yes Status: Acute Assessment and plan: Patient has mild hyponatremia. Likely due to decreased by mouth intake. No pedal edema pulmonary congestion to suggest cardiac etiology We will keep patient on maintenance IV fluids for now. (3) Decreased oral intake Current Visit: Yes Status: Acute Assessment and plan: Likely has protein calorie malnutrition due to decreased intake Likely leading to weakness We will obtain total protein and albumin levels in the morning Dietary supplements We will get PT/OT consult as well - Time Spent With Patient Total time spent is greater than 50% in coordination of care (as documented) at patient's floor/unit and/or counseling patient:
--- NOTE | 2019-04-17 12:50 | Electrocardiograph Report ---
[facility] Test Date: 2019-04-17 Pat Name: John Paul Bender Department: EXAM3 Room: Gender: M [employer] Production Manager: : 1930 Requested By: Chihco Azar Order Number: [id number] Reading MD: Jovani Alejandra Measurements Intervals [place] Rate: 91 P: 54 MI: 160 QRS: -64 QRSD: 127 T: 78 QT: 381 QTc: 469 Interpretive Statements Sinus rhythm IVCD, consider atypical RBBB LVH with secondary repolarization abnormality Anterior infarct, old Left axis deviation POOR R WAVE PROGRESSION Electronically Signed On 04-17-2019 12:49:09 EDT by Jovani Alejandra
[2019-04-17] MEDS: Ringers Solution, Lactated 1,000 ML IVC SCH (15:03)
[2019-04-18] MEDS: Ringers Solution, Lactated 1,000 ML IVC SCH (02:55)
[2019-04-18 06:39] LABS: Lactate Dehydrogenase 143 Units/L (140-271); Total Protein 6.4 g/dL (6.4-8.9)
[2019-04-18 06:41] LABS: BUN/Creatinine Ratio 15 (6-26); Blood Urea Nitrogen 13 mg/dL (8-23); Carbon Dioxide 23 mEq/L (23-29); Chloride 100 mEq/L (98-107); Glucose 95 mg/dL (70-105); Osmolality,Calculated 276 (280-300); Potassium 4.1 mEq/L (3.5-5.1); Sodium 133 mEq/L (136-145); eGFR For African Americans > 60 (> 60); eGFR For Non-African Americans > 60 (> 60)
--- NOTE | 2019-04-18 14:50 | Internal Med Progress Note ---
Hospitalist Progress Note - Encounter Date of Encounter: 04/18/19 Time of Encounter: 11:00 - Subjective Interval History: Mr. Bender is a 88 year old male past medical history of CVA and left hip fracture in 2018, decreased vision due to glaucoma and macular degeneration came to ER with c/o of back pain from last 2 weeks. Patient was seen in the ER with back pain and had imaging done. CT abdomen showed small right pleural effusion and slightly increased left pleural effusion with associated atelectasis but pneumonia could not be excluded. Patient denies any difficulty breathing or fevers. Patient was seen and examined bedside. He is more alert, awake, O x 4. Denied any pain any where. Denied any complaints. - Exam Vitals: Temp Pulse Resp BP Pulse Ox 98.4 F 91 16 154/77 94 04/18/19 11:56 04/18/19 11:56 04/18/19 11:56 04/18/19 11:56 04/18/19 11:56 Exam: Gen: Alert, awake, Oriented to time,place and person Chest: Diminished breath sounds B/L, No wheezing, No crackles, No rales Heart: S1S2+ RRR No murmurs Abd: Soft, NT, BS +, No organomegaly Ext: No edema, pulses are palpable, No calf tenderness Back: No CVA tenderness Neuro : No acute focal neuro deficits noticed Skin: No rash. - Assessment and Plan (1) Back pain Current Visit: Yes Status: Acute Assessment and Plan: Patient has back pain ongoing for about 2-3 weeks Could be due to DJD however CT findings are concerning for questionable PNA Pt remained afebrile and normal WBC, no symptoms of PNA noticed will hold of an abx for now will f/u on Pleural fluid analysis (2) Pleural effusion Current Visit: Yes Status: Acute Assessment and Plan: unclear etiology could be third spacing transudate No signs of volume overload IR consulted for thoracocentsis will check 2 D Echo too (3) Hyponatremia Current Visit: Yes Status: Acute Assessment and Plan: Due to dehydration improved with gentle IV hydration (4) Protein-calorie malnutrition, moderate Current Visit: Yes Status: Acute Assessment and Plan: Consulted Nutrition for further eval Will check Prealbumin level - Time Spent with Patient Total time spent is greater than 50% in coordination of care (as documented) at patient's floor/unit and/or counseling patient: Internal Medicine: Result - Labs CBC & Chem 7: 04/17/19 08:51 04/18/19 06:01 Labs: BMP 04/18/19 06:01 Sodium 133 L Potassium 4.1 Chloride 100 Carbon Dioxide 23 BUN 13 Creatinine 0.87 Glucose 95 Calcium 9.0 Liver Function 04/18/19 Range/Units 06:01 Albumin 3.5 (3.5-5.7) g/dL - ABG Interpretation ABG results: PT/INR, D-dimer PT 12.0 Seconds (9.4-12.1) 04/17/19 08:51 - Impressions Impressions Lumbar Spine CT 04/17/19 08:02 IMPRESSION: 1. No acute osseous abnormality of the lumbar spine. 2. Bony demineralization. 3. Minimal degenerative changes. 4. Please refer to dedicated CT report of the abdomen and pelvis for further details. D/ / 04/17/2019 10:46:31 Anna Hernández MD / [place] Interpreting Provider: Anna Hernández MD Pelvis X-Ray 04/17/19 08:02 IMPRESSION: 1. No acute osseous abnormality of the pelvis. 2. Status post left hip arthroplasty. No complication. 3. Moderate degenerative changes of the right hip. 4. Bony demineralization. D/ / 04/17/2019 09:06:56 Anna Hernández MD / [place] Interpreting Provider: Anna Hernández MD Consult Discharge Plan - Plan Referrals: Jake Frederick DO [Primary Care Provider] - (Appoitnment has been requested.) (1) Back pain Qualifiers: Back pain location: thoracic back pain Chronicity: acute Back pain laterality: left Qualified Code(s): M54.6 - Pain in thoracic spine
[2019-04-18] MEDS: *HR* OxyCODONE/APAP 5/325 TABLET PO PRN (19:49)
[2019-04-18] MEDS: Latanoprost 2.5 ML BOTTLE BOTH EYES SCH (21:20)
[2019-04-18] MEDS ORDERED: Perflutren Lipid Microsphere 1.3 ML in 0.9 % Sodium Chloride 8.7 ML IVP ONE ×2 (21:31→21:38)
[2019-04-19 05:33] LABS: BUN/Creatinine Ratio 19 (6-26); Blood Urea Nitrogen 17 mg/dL (8-23); Calcium 8.8 mg/dL (8.6-10.3); Carbon Dioxide 21 mEq/L (23-29); Chloride 103 mEq/L (98-107); Glucose 91 mg/dL (70-105); Osmolality,Calculated 279 (280-300); Potassium 4.1 mEq/L (3.5-5.1); Sodium 134 mEq/L (136-145); eGFR For African Americans > 60 (> 60); eGFR For Non-African Americans > 60 (> 60)
[2019-04-19] MEDS: Aspirin Enteric Coated 81 MG Tablet PO SCH (08:03)
--- NOTE | 2019-04-19 12:38 | Internal Med Progress Note ---
Hospitalist Progress Note - Encounter Date of Encounter: 04/19/19 Time of Encounter: 12:38 - Subjective Interval History: Mr. Bender is a 88 year old male past medical history of CVA and left hip fracture in 2018, decreased vision due to glaucoma and macular degeneration came to ER with c/o of back pain from last 2 weeks. Patient was seen in the ER with back pain and had imaging done. CT abdomen showed small right pleural effusion and slightly increased left pleural effusion with associated atelectasis but pneumonia could not be excluded. Patient denies any difficulty breathing or fevers. Patient was seen and examined bedside. He is more alert, awake, O x 4. Denied any pain any where. He still very lethargic and weak. Denied any fever. - Exam Vitals: Temp Pulse Resp BP Pulse Ox 98.5 F 86 15 148/87 97 04/19/19 07:00 04/19/19 07:00 04/19/19 07:00 04/19/19 07:00 04/19/19 08:17 Exam: Gen: Alert, awake, Oriented to time,place and person Chest: Diminished breath sounds B/L, No wheezing, No crackles, No rales Heart: S1S2+ RRR No murmurs Abd: Soft, NT, BS +, No organomegaly Ext: No edema, pulses are palpable, No calf tenderness Back: No CVA tenderness Neuro : No acute focal neuro deficits noticed Skin: No rash. - Assessment and Plan (1) Back pain Current Visit: Yes Status: Acute Assessment and Plan: Patient has back pain ongoing for about 2-3 weeks Could be due to DJD however CT findings are concerning for questionable PNA Pt remained afebrile and normal WBC, no symptoms of PNA noticed No need of abx for now PT / OT eval He does need more than 2 people assistance now to get around He may need ECF placement SW / CM on board Patient does need to stay in the hospital more than 2 midnights due to his complex medical problems, deconditioning, falls and pleural effusion. So we will change him to full admission today. I did review my colleague Dr. Sheppard's H & P including HPI, PMH, PSH, FH, SH, and ROS no changes noticed (2) Pleural effusion Current Visit: Yes Status: Acute Assessment and Plan: unclear etiology could be third spacing transudate No signs of volume overload IR unable to do thoracocentsis - since he does have a small trace fluid only will give Lasix 20mg PO for now 2 D Echo - P (3) Hyponatremia Current Visit: Yes Status: Acute Assessment and Plan: Due to dehydration improved with gentle IV hydration (4) Protein-calorie malnutrition, moderate Current Visit: Yes Status: Acute Assessment and Plan: Consulted Nutrition for further eval His Prealbumin level @ 12.4 Cont Ensure TID with each meal (5) DVT prophylaxis Current Visit: No Status: Chronic Assessment and Plan: on SQ Heparin - Time Spent with Patient Total time spent is greater than 50% in coordination of care (as documented) at patient's floor/unit and/or counseling patient: Internal Medicine: Result - Labs CBC & Chem 7: 04/17/19 08:51 04/19/19 04:40 Labs: BMP 04/19/19 04:40 Sodium 134 L Potassium 4.1 Chloride 103 Carbon Dioxide 21 L BUN 17 Creatinine 0.91 Glucose 91 Calcium 8.8 - ABG Interpretation ABG results: PT/INR, D-dimer PT 12.0 Seconds (9.4-12.1) 04/17/19 08:51 - Impressions Impressions Chest Ultrasound 04/18/19 08:00 IMPRESSION: Left chest ultrasound demonstrated only a trace of fluid and therefore it was determined that it was not safe enough to perform thoracentesis. D/ / 04/18/2019 15:30:44 Myla Baez MD / [email or web address] Interpreting Provider: Myla Baez MD Consult Discharge Plan - Plan Referrals: Jake Frederick DO [Primary Care Provider] - (Appoitnment has been requested.) (1) Back pain Qualifiers: Back pain location: thoracic back pain Chronicity: acute Back pain laterality: left Qualified Code(s): M54.6 - Pain in thoracic spine
[2019-04-19] MEDS: *HR* OxyCODONE/APAP 5/325 TABLET PO PRN (13:40)
[2019-04-19] MEDS: Furosemide 20 MG TABLET PO SCH (13:40)
[2019-04-19] MEDS: *HR* Heparin 5,000 UNIT/ML VIAL SQ SCH (17:44)
[2019-04-19] MEDS: Latanoprost 2.5 ML BOTTLE BOTH EYES SCH (21:13)
[2019-04-20] MEDS: *HR* OxyCODONE/APAP 5/325 TABLET PO PRN (01:38)
[2019-04-20 04:01] LABS: Hematocrit 34.4 % (37.5-50.1); Hemoglobin 11.5 g/dL (12.9-16.9); Mean Corpuscular HGB Conc 33.4 g/dL (31.6-35.5); Mean Corpuscular Hemoglobin 30.9 pg (28.0-33.3); Mean Corpuscular Volume 92.5 fL (83.0-100.0); Platelet Count 240 K/mcL (140-400); Red Blood Count 3.72 M/mcL (4.19-5.50); Red Cell Distribution Width 13.2 % (11.5-14.5); White Blood Count 6.7 K/mcL (4.3-11.1)
[2019-04-20 04:19] LABS: BUN/Creatinine Ratio 26 (6-26); Blood Urea Nitrogen 25 mg/dL (8-23); Calcium 8.5 mg/dL (8.6-10.3); Carbon Dioxide 22 mEq/L (23-29); Chloride 103 mEq/L (98-107); Glucose 97 mg/dL (70-105); Osmolality,Calculated 282 (280-300); Potassium 4.1 mEq/L (3.5-5.1); Sodium 134 mEq/L (136-145); eGFR For African Americans > 60 (> 60); eGFR For Non-African Americans > 60 (> 60)
[2019-04-20] MEDS: *HR* Heparin 5,000 UNIT/ML VIAL SQ SCH ×2 (05:33→16:22)
[2019-04-20] MEDS: Aspirin Enteric Coated 81 MG Tablet PO SCH (08:17)
[2019-04-20] MEDS: Furosemide 20 MG TABLET PO SCH (08:17)
--- NOTE | 2019-04-20 12:03 | Internal Med Progress Note ---
Hospitalist Progress Note - Encounter Date of Encounter: 04/20/19 Time of Encounter: 12:03 - Subjective Interval History: Mr. Bender is a 88 year old male past medical history of CVA and left hip fracture in 2018, decreased vision due to glaucoma and macular degeneration came to ER with c/o of back pain from last 2 weeks. Patient was seen in the ER with back pain and had imaging done. CT abdomen showed small right pleural effusion and slightly increased left pleural effusion with associated atelectasis but pneumonia could not be excluded. Patient denies any difficulty breathing or fevers. Patient was seen and examined bedside. He is more alert, awake, O x 4. Denied any pain any where. He still very lethargic and weak. Denied any fever. No events over night. - Exam Vitals: Temp Pulse Resp BP Pulse Ox 97.9 F 85 15 103/65 96 04/20/19 11:54 04/20/19 11:54 04/20/19 11:54 04/20/19 11:54 04/20/19 11:54 Exam: Gen: Alert, awake, Oriented to time,place and person Chest: Diminished breath sounds B/L, No wheezing, No crackles, No rales Heart: S1S2+ RRR No murmurs Abd: Soft, NT, BS +, No organomegaly Ext: No edema, pulses are palpable, No calf tenderness Back: No CVA tenderness Neuro : No acute focal neuro deficits noticed Skin: No rash. - Assessment and Plan (1) Back pain Current Visit: Yes Status: Acute Assessment and Plan: Patient has back pain ongoing for about 2-3 weeks Could be due to DJD CT findings are concerning for questionable PNA However pt remained afebrile and normal WBC, no symptoms of PNA noticed No need of abx for now PT / OT eval He does need more than 2 people assistance now to get around PT / OT recommended ECF placement. SW / CM are working on it (2) Pleural effusion Current Visit: Yes Status: Acute Assessment and Plan: unclear etiology could be third spacing transudate No signs of volume overload IR unable to do thoracocentsis - since he does have a small trace fluid only will give Lasix 20mg PO for now 2 D Echo - showed LVEF 50-55%, indeterminate diastolic function (3) Hyponatremia Current Visit: Yes Status: Acute Assessment and Plan: Due to dehydration improved with gentle IV hydration (4) Protein-calorie malnutrition, moderate Current Visit: Yes Status: Acute Assessment and Plan: Consulted Nutrition for further eval His Prealbumin level @ 12.4 Cont Ensure TID with each meal (5) DVT prophylaxis Current Visit: No Status: Chronic Assessment and Plan: on SQ Heparin - Time Spent with Patient Total time spent is greater than 50% in coordination of care (as documented) at patient's floor/unit and/or counseling patient: Internal Medicine: Result - Labs CBC & Chem 7: 04/20/19 03:46 04/20/19 03:46 Labs: Short CBC 04/20/19 Range/Units 03:46 WBC 6.7 (4.3-11.1) K/mcL Hgb 11.5 L (12.9-16.9) g/dL Hct 34.4 L (37.5-50.1) % Plt Count 240 (140-400) K/mcL BMP 04/20/19 03:46 Sodium 134 L Potassium 4.1 Chloride 103 Carbon Dioxide 22 L BUN 25 H Creatinine 0.98 Glucose 97 Calcium 8.5 L - ABG Interpretation ABG results: PT/INR, D-dimer PT 12.0 Seconds (9.4-12.1) 04/17/19 08:51 - Impressions Impressions Chest Ultrasound 04/18/19 08:00 IMPRESSION: Left chest ultrasound demonstrated only a trace of fluid and therefore it was determined that it was not safe enough to perform thoracentesis. D/ / 04/18/2019 15:30:44 Myla Baez MD / [email or web address] Interpreting Provider: Myla Baez MD Echocardiogram 04/18/19 09:41 Impressions: LVEF 50-55%. Indeterminate diastolic function. Normal LV chamber size, wall thickness. Normal right ventricular structure and function. Mild-moderate aortic regurgitation. No evidence of pulmonary hypertension. Left Ventricular Wall Motion: Rest Echo Findings All wall segments showed normal motion. Findings: Study Quality * Technically adequate exam. ECG Findings * Sinus rhythm with PACs. Left Ventricle * LVEF 50-55%. * Indeterminate diastolic function. * Normal LV chamber size, wall thickness. * Basal sigmoid septum. * Definity echo contrast was used. Right Ventricle * Normal right ventricular structure and function. Left Atrium * Normal left atrial size. Right Atrium * Normal right atrial size. Aortic Valve * Trileaflet aortic valve. * Mild-moderate aortic regurgitation. * No aortic stenosis. Mitral Valve * Normal mitral valve structure. * No mitral regurgitation. * No mitral stenosis. Tricuspid Valve * Trace tricuspid regurgitation. * No tricuspid stenosis. * Normal tricuspid valve structure. * No evidence of pulmonary hypertension. Pulmonic Valve * Pulmonic valve not well visualized. Aorta * Normally sized aortic root. Pericardium * The pericardium appears normal. IVC * The IVC is not well evaluated. Pulmonary Artery * Pulmonary artery not well visualized. Consult Discharge Plan - Plan Referrals: Jake Frederick DO [Primary Care Provider] - (Appoitnment has been requested.) _ (1) Back pain Qualifiers: Back pain location: thoracic back pain Chronicity: acute Back pain laterality: left Qualified Code(s): M54.6 - Pain in thoracic spine
[2019-04-20] MEDS: Latanoprost 2.5 ML BOTTLE BOTH EYES SCH (20:11)
[2019-04-21] MEDS: *HR* Heparin 5,000 UNIT/ML VIAL SQ SCH ×2 (05:31→17:17)
[2019-04-21] MEDS: Furosemide 20 MG TABLET PO SCH (09:46)
[2019-04-21] MEDS: Aspirin Enteric Coated 81 MG Tablet PO SCH (09:46)
--- NOTE | 2019-04-21 10:18 | Internal Med Progress Note ---
Hospitalist Progress Note - Encounter Date of Encounter: 04/21/19 Time of Encounter: 09:30 - Subjective Interval History: Mr. Bender is a 88 year old male past medical history of CVA and left hip fracture in 2018, decreased vision due to glaucoma and macular degeneration came to ER with c/o of back pain from last 2 weeks. Patient was seen in the ER with back pain and had imaging done. CT abdomen showed small right pleural effusion and slightly increased left pleural effusion with associated atelectasis but pneumonia could not be excluded. Patient denies any difficulty breathing or fevers. Patient was seen and examined bedside. He is more alert, awake, O x 4. Denied any pain any where. He still very lethargic and weak. Denied any fever. No events over night. - Exam Vitals: Temp Pulse Resp BP Pulse Ox 97.9 F 89 14 118/66 98 04/21/19 07:21 04/21/19 07:21 04/21/19 07:21 04/21/19 07:21 04/21/19 07:21 Exam: Gen: Alert, awake, Oriented to time,place and person Chest: Diminished breath sounds B/L, No wheezing, No crackles, No rales Heart: S1S2+ RRR No murmurs Abd: Soft, NT, BS +, No organomegaly Ext: No edema, pulses are palpable, No calf tenderness Back: No CVA tenderness Neuro : No acute focal neuro deficits noticed Skin: No rash. 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 SW / CM are working on it Possible d/c to ECF in AM (2) Pleural effusion Current Visit: Yes Status: Acute Assessment and Plan: unclear etiology could be third spacing transudate No signs of volume overload IR unable to do thoracocentsis - since he does have a small trace fluid only cont Lasix 20mg PO for now 2 D Echo - showed LVEF 50-55%, indeterminate diastolic function (3) Hyponatremia Current Visit: Yes Status: Acute Assessment and Plan: Due to dehydration improved with gentle IV hydration (4) Sacral decubitus ulcer Current Visit: Yes Status: Chronic Assessment and Plan: presented since admission cont local care.. cont changing his position frequently (5) Protein-calorie malnutrition, moderate Current Visit: Yes Status: Acute Assessment and Plan: Consulted Nutrition for further eval His Prealbumin level @ 12.4 Cont Ensure TID with each meal (6) Failure to thrive in adult Current Visit: Yes Status: Acute Assessment and Plan: care as above (7) DVT prophylaxis Current Visit: No Status: Chronic Assessment and Plan: on SQ Heparin - Time Spent with Patient Total time spent is greater than 50% in coordination of care (as documented) at patient's floor/unit and/or counseling patient: Internal Medicine: Result - Labs CBC & Chem 7: 04/20/19 03:46 04/20/19 03:46 - ABG Interpretation ABG results: PT/INR, D-dimer PT 12.0 Seconds (9.4-12.1) 04/17/19 08:51 Consult Discharge Plan - Plan Referrals: Jake Frederick DO [Primary Care Provider] - (Appoitnment has been requested.) (1) Back pain Qualifiers: Back pain location: thoracic back pain Chronicity: acute Back pain laterality: left Qualified Code(s): M54.6 - Pain in thoracic spine (4) Sacral decubitus ulcer Qualifiers: Pressure injury stage: unspecified pressure injury stage Qualified Code(s): L89.159 - Pressure ulcer of sacral region, unspecified stage
[2019-04-21] MEDS: Latanoprost 2.5 ML BOTTLE BOTH EYES SCH (20:03)
[2019-04-22 05:17] LABS: Hematocrit 37.7 % (37.5-50.1); Hemoglobin 12.2 g/dL (12.9-16.9); Mean Corpuscular HGB Conc 32.4 g/dL (31.6-35.5); Mean Corpuscular Hemoglobin 30.9 pg (28.0-33.3); Mean Corpuscular Volume 95.4 fL (83.0-100.0); Mean Platelet Volume 8.8 fL (9.4-12.4); Platelet Count 262 K/mcL (140-400); Red Blood Count 3.95 M/mcL (4.19-5.50); Red Cell Distribution Width 13.2 % (11.5-14.5)
[2019-04-22 05:30] LABS: BUN/Creatinine Ratio 29 (6-26); Blood Urea Nitrogen 28 mg/dL (8-23); Calcium 8.8 mg/dL (8.6-10.3); Carbon Dioxide 23 mEq/L (23-29); Chloride 104 mEq/L (98-107); Glucose 83 mg/dL (70-105); Osmolality,Calculated 283 (280-300); Potassium 4.3 mEq/L (3.5-5.1); Sodium 134 mEq/L (136-145); eGFR For African Americans > 60 (> 60); eGFR For Non-African Americans > 60 (> 60)
[2019-04-22] MEDS: *HR* Heparin 5,000 UNIT/ML VIAL SQ SCH (06:09)
[2019-04-22 06:56] VITALS: BP 120/79
[2019-04-22] MEDS: Furosemide 20 MG TABLET PO SCH (08:03)
[2019-04-22] MEDS: Aspirin Enteric Coated 81 MG Tablet PO SCH (08:03)
--- NOTE | 2019-04-22 10:29 | Discharge Summary ---
- NOTES TO OUTPATIENT PROVIDER Notes to Outpatient Provider: f/u with PCP in one week. Orders not resulted at time of discharge: Pending orders 04/23/19 04:00 BMP [Basic Metabolic Panel] AM 0400 CBC no Diff [Complete Blood Count w/o Diff] [HEME] AM 0400 Date of Encounter: 04/22/19 Time of Encounter: 10:24 - Discharge Diagnosis (1) Back pain Priority: Primary Status: Acute Qualifiers: Back pain location: thoracic back pain Chronicity: acute Back pain laterality: left Qualified Code(s): M54.6 - Pain in thoracic spine (2) Pleural effusion Priority: Primary Status: Acute (3) Hyponatremia Priority: Secondary Status: Acute (4) Sacral decubitus ulcer Priority: Secondary Status: Chronic Qualifiers: Pressure injury stage: unspecified pressure injury stage Qualified Code(s): L89.159 - Pressure ulcer of sacral region, unspecified stage (5) Protein-calorie malnutrition, moderate Priority: Secondary Status: Acute (6) Failure to thrive in adult Priority: Secondary Status: Acute (7) DVT prophylaxis Priority: Secondary Status: Chronic Hospital course: Mr. Bender is a 88 year old male past medical history of CVA and left hip fracture in 2018, decreased vision due to glaucoma and macular degeneration came to ER with c/o of back pain from last 2 weeks. Patient was seen in the ER with back pain and had imaging done. CT abdomen showed small right pleural effusion and slightly increased left pleural effusion with associated atelectasis but pneumonia could not be excluded. Patient denies any difficulty breathing or fevers. He was admitted in the hospital and placed him on quality assurance monitor final. He remained afebrile. His pleural effusion was very small unable to do thoracocentesis. So started him on Lasix PO. His symptoms improved. He does have failure to thrive and severe protein caloric malnutrition with prealbumin level @ 12.4. Pt was evaluated by [facility] and recommended to start Ensure TID with each meal. He is high risk for falls and severe physically deconditioned too. Pt was evaluated by PT / OT who recommended ECF placement for short term rehab. So will d/c him to ECF in stable condition today . - Time Spent with Patient Total time spent providing and/or coordinating discharge services: - Discharge Medications Prescriptions: New OxyCODONE/APAP 5/325 [Percocet 5/325 MG] 1 each PO Q8HR PRN 4 Days #10 tablet PRN Reason: Moderate Pain Furosemide [Lasix] 20 mg PO DAILY tablet Continued Bimatoprost [Lumigan] 1 drop BOTH EYES HS Aspirin [Lo-Dose Aspirin EC] 81 mg PO DAILY Home Medications: Aspirin [Lo-Dose Aspirin EC] 81 mg PO DAILY 04/17/19 [History] Bimatoprost [Lumigan] 1 drop BOTH EYES HS 04/17/19 [History] Furosemide [Lasix] 20 mg PO DAILY tablet 04/22/19 [Rx] OxyCODONE/APAP 5/325 [Percocet 5/325 MG] 1 each PO Q8HR PRN 4 Days #10 tablet 04/22/19 [Rx] Allergies/Adverse Reactions: Allergy/AdvReac Type Severity Reaction Status Date / Time morphine AdvReac Hallucinati Verified 04/17/19 16:13 ng Date of admission: 04/19/19 13:00 Primary care physician: Raudel Frederick DO Consults: 04/17/19 11:56 Consult to Interventional Radiology [CONS] Routine Consulting Provider: Radiology Interventional Cols Reason for Consult: diagnostic lt thorocentesi Call Completed: No 04/17/19 12:02 Consult to Occupational Therapy [CONS] Routine Comment: Evaluate, develop and implement POC Reason for Consult: improve mobility, discharge planning Does patient have active BEDREST order?: No Is patient medically & hemodynamically stable?: Yes Consult to Physical Therapy [CONS] Routine Comment: Evaluate, develop and implement POC Reason for Consult: improve mobility, discharge planning Does patient have active BEDREST order?: No Is patient medically & hemodynamically stable?: Yes 04/18/19 15:12 Consult to Nutrition [CONS] Routine Comment: Consulting Provider: NUTRITION Reason for Dietary Consult: Diet Education PO Supplementation 04/21/19 07:12 Consult to Discovery Guide [CONS] Routine Reason for SW Consult: PT/OT RECOMMEND SNF, REFERRAL MADE TO TRADITIONS - Constitutional Vitals: Temp Pulse Resp BP Pulse Ox 97.5 F L 88 16 120/79 93 04/22/19 06:50 04/22/19 06:50 04/22/19 06:50 04/22/19 06:50 04/22/19 06:50 General appearance: Present: A&O X 3, no acute distress, answers questions appropriately Exam: Gen: Alert, awake, Oriented to time,place and person Chest: Diminished breath sounds B/L, No wheezing, No crackles, No rales Heart: S1S2+ RRR No murmurs Abd: Soft, NT, BS +, No organomegaly Ext: No edema, pulses are palpable, No calf tenderness Back: No CVA tenderness Neuro : No acute focal neuro deficits noticed Skin: No rash. - Patient Status Disposition: Transfer SNF Condition: Good Overall status at discharge: patient is back to baseline - Discharge Instructions Follow Up With: Jake Frederick DO [Primary Care Provider] - (Appoitnment has been requested.) Forms: ED Satisfaction Letter - Diet and Activity Activity: increase activity as tolerated Diet: low salt diet
--- NOTE | 2019-04-22 10:30 | Physician Discharge Referral ---
ExtendedCare Referral Info Transfer To: [facility] Provider in Charge after Transfer: PCP Institutional Level of Care: Skilled - Diagnosis (1) Back pain Status: Acute (2) Pleural effusion Status: Acute (3) Hyponatremia Status: Acute (4) Sacral decubitus ulcer Status: Chronic (5) Protein-calorie malnutrition, moderate Status: Acute (6) Failure to thrive in adult Status: Acute (7) DVT prophylaxis Status: Chronic - Transfer Medications Prescriptions: OxyCODONE/APAP 5/325 [Percocet 5/325 MG] 1 each PO Q8HR PRN 4 Days #10 tablet PRN Reason: Moderate Pain Home Medications: Aspirin [Lo-Dose Aspirin EC] 81 mg PO DAILY 04/17/19 [History] Bimatoprost [Lumigan] 1 drop BOTH EYES HS 04/17/19 [History] Furosemide [Lasix] 20 mg PO DAILY tablet 04/22/19 [Rx] OxyCODONE/APAP 5/325 [Percocet 5/325 MG] 1 each PO Q8HR PRN 4 Days #10 tablet 04/22/19 [Rx] Allergies/Adverse Reactions: Allergy/AdvReac Type Severity Reaction Status Date / Time morphine AdvReac Hallucinati Verified 04/17/19 16:13 ng - Respiratory Orders Smoking Cessation: Smoking cessation has been advised. For more information, call the [place] Tobacco Quit Line at 2-499-RPQR-NOW. CERTIFICATION: I certify that the transfer of the above named patient to an Extended Care Facility is necessary for the continuing treatment of the diagnosis listed. The above information is true and accurate reflection of patient's current condition. Confidential - Redisclosure prohibited without a patient's written consent.
== END 2019-04-22 12:41 | DRG 186 ==
LOC: EMEROOARM 07:37 → 3BNU 07:37 → SUATTDRO 13:33 → 3BNU 14:52
PROVIDERS: ADMIT Internal Medicine; ATTEND Family Medicine